=== PATIENT | female | born 1980 | race Caucasian/White ===

== ENCOUNTER 2023-08-15 14:41 | Emergency (ER) | payer BC, SELFPAY ==
[2023-08-15 14:42] VITALS: BP 153/96; PULSE 88; RESP 16; TEMP 36.8; O2SAT 97; BMI 31.9
[2023-08-15 14:46] VITALS: BP 138/104; PULSE 78; RESP 18; O2SAT 95
[2023-08-15 14:53] VITALS: BP 128/76; BP 132/80
[2023-08-15 15:00] VITALS: PULSE 86; RESP 21
--- NOTE | 2023-08-15 15:08 | ECG_ITS ---
[facility] Test Date: 2023-08-15 Pat Name: DAGO PAYNE Department: Room: - Gender: Female Heel Nail Rasper: : 1980 Requested By: JELENA KING Order Number: [id number] Reading MD: JELENA KING Measurements Intervals [place] Rate: 78 P: 46 [place]: 174 QRS: 62 QRSD: 98 T: 52 QT: 358 QTc: 391 Interpretive Statements 1100 Sinus rhythm 9110 normal ECG No previous ECG available for comparison Electronically Signed On 08-18-2023 6:42:46 EST by JELENA KING
[2023-08-15 15:16] LABS: Basophils Absolute Auto 0.1 10^3/uL (0.0-0.1); Basophils Percent Auto 0.5 % (0.2-2.0); Eosinophils Absolute Auto 0.1 10^3/uL (0.0-0.7); Eosinophils Percent Auto 0.6 % (0.9-7.0); Hematocrit 41.6 % (36.0-48.0); Hemoglobin 13.7 g/dL (12.0-16.0); Immature Granulocytes Abs Auto 0.03 10^3/uL (0.00-0.03); Immature Granulocytes Pct Auto 0.3 % (0.0-0.5); Lymphocytes Absolute Auto 1.9 10^3/uL (1.2-3.8); Lymphocytes Percent Auto 20.5 % (20.5-60.0); Mean Corpuscular HGB Conc 32.9 g/dL (29.9-35.2); Mean Corpuscular Hemoglobin 28.5 pg (26.7-34.0); Mean Corpuscular Volume 86.7 fL (81.0-99.0); Mean Platelet Volume 9.5 fL (9.5-13.5); Monocytes Absolute Auto 0.5 10^3/uL (0.3-0.8); Monocytes Percent Auto 5.6 % (1.7-12.0); Neutrophils Absolute Auto 6.8 10^3/uL (1.4-6.5); Neutrophils Percent Auto 72.5 % (43.0-75.0); Platelet Count 384 10^3/uL (150-450); Red Cell Distribution Width 13.4 % (11.0-15.0); White Blood Count 9.3 10^3/uL (4.0-11.0)
--- NOTE | 2023-08-15 15:25 | CT_ITS ---
[address] [address] Patient Name: DAGO PAYNE MRN: [id number] date: 1980 Sex: F Assigned Patient Location: ER Current Patient Location: ED.MAIN Accession/Order Number: [id number] Exam Date: 08/15/2023 15:05 Report Date: 08/15/2023 15:54 At the request of: GARY BROTHERS Procedure: CT angio head EXAM: CT angio head, CT angio neck HISTORY: Right facial/extremity weakness COMPARISON: 08/15/2023 TECHNIQUE: Axial CT images were obtained of the head and neck in the arterial phase. Multiplanar reconstructions were performed. MIP reformatted images were performed. Carotid stenosis is reported according to NASCET criteria. CTA HEAD FINDINGS: Internal carotid arteries: No acute thrombosis or dissection. Vertebrobasilar arteries: No acute thrombosis or dissection. Intracranial arteries: No acute thrombosis, dissection, aneurysm or vascular malformation Venous sinuses: Unremarkable. CTA NECK FINDINGS: Aorta and proximal great vessels: No acute thrombosis or dissection. Common carotid arteries: No acute thrombosis or dissection. Internal carotid arteries: No acute thrombosis or dissection. Vertebral arteries: No acute thrombosis or dissection. Venous structures: Unremarkable. Bones: Unremarkable. Soft tissues: Unremarkable. CT/CT angio head IMPRESSION: 1. No acute vascular abnormality of the head and neck. Electronically authenticated by: HERMILA WHIPPLE Date: 08/15/2023 15:54
--- NOTE | 2023-08-15 15:25 | CT_ITS ---
The [address] [address] Patient Name: DAGO PAYNE MRN: [id number] date: 1980 Sex: F Assigned Patient Location: ER Current Patient Location: ER Accession/Order Number: [id number] Exam Date: 08/15/2023 15:05 Report Date: 08/15/2023 15:47 At the request of: GARY BROTHERS Procedure: CT stroke head/brain wo con EXAMINATION: CT stroke head/brain wo con TECHNIQUE: Axial CT images were obtained through the brain. Sagittal and coronal reformatted images were also obtained. Dose reduction techniques were achieved by using automated exposure control and/or adjustment of mA and/or kV according to patient size and/or use of iterative reconstruction technique. HISTORY: Right facial/extremity weakness COMPARISON: None FINDINGS: Intracranial Bleed: No evidence for acute intracranial bleed. Intracranial Mass: No evidence for mass lesion. No mass effect or midline shift. Extra-axial spaces: The ventricular system is normal caliber. White/Peters Matter: No acute cortical infarct. No significant white matter abnormality. Skull/Scalp: No evidence for skull fracture or lesion. Orbits and sinuses: The orbits appear unremarkable. The visualized paranasal sinuses are clear. CT/CT stroke head/brain wo con IMPRESSION: No acute intracranial pathology. Electronically authenticated by: MARCELA SPANGLER Date: 08/15/2023 15:47
--- NOTE | 2023-08-15 15:25 | CT_ITS ---
[address] [address] Patient Name: DAGO PAYNE MRN: [id number] date: 1980 Sex: F Assigned Patient Location: ED.MAIN Current Patient Location: ED.MAIN Accession/Order Number: [id number] Exam Date: 08/15/2023 15:05 Report Date: 08/15/2023 15:54 At the request of: GARY BROTHERS Procedure: CT angio neck EXAM: CT angio head, CT angio neck HISTORY: Right facial/extremity weakness COMPARISON: 08/15/2023 TECHNIQUE: Axial CT images were obtained of the head and neck in the arterial phase. Multiplanar reconstructions were performed. MIP reformatted images were performed. Carotid stenosis is reported according to NASCET criteria. CTA HEAD FINDINGS: Internal carotid arteries: No acute thrombosis or dissection. Vertebrobasilar arteries: No acute thrombosis or dissection. Intracranial arteries: No acute thrombosis, dissection, aneurysm or vascular malformation Venous sinuses: Unremarkable. CTA NECK FINDINGS: Aorta and proximal great vessels: No acute thrombosis or dissection. Common carotid arteries: No acute thrombosis or dissection. Internal carotid arteries: No acute thrombosis or dissection. Vertebral arteries: No acute thrombosis or dissection. Venous structures: Unremarkable. Bones: Unremarkable. Soft tissues: Unremarkable. CT/CT angio neck IMPRESSION: 1. No acute vascular abnormality of the head and neck. Electronically authenticated by: HERMILA WHIPPLE Date: 08/15/2023 15:54
[2023-08-15 15:27] LABS: INR 1.02; Partial Thromboplastin Time 27.1 sec (22.3-36.2); Prothrombin Time 10.8 sec (9.0-11.6)
[2023-08-15 15:28] LABS: Alanine Aminotransferase 25 U/L (14-59); Albumin Globulin Ratio 0.9; Albumin Level 3.6 g/dL (3.4-5.0); Alkaline Phosphatase 64 U/L (46-116); Aspartate Amino Transferase 27 U/L (15-37); BUN Creatinine Ratio 16.7; Bilirubin Total 0.4 mg/dL (0.2-1.0); Calcium 8.6 mg/dL (8.5-10.1); Carbon Dioxide 27.9 mmol/L (21.0-32.0); Chloride 104 mmol/L (98-107); Estimated GFR (African America >60 (>=60); Estimated GFR (Non-African Ame >60 (>=60); Globulin 3.9 g/dL; Glucose 97 mg/dL (74-106); Potassium 3.9 mmol/L (3.5-5.1); Sodium 141 mmol/L (136-145); Total Protein 7.5 g/dL (6.4-8.2); Troponin I High Sensitivity <4.0 pg/mL (4.0-51.3)
--- NOTE | 2023-08-15 16:30 | ED_ITS ---
HPI - General Adult General Chief complaint: Neuro Symptoms/Deficit Stated complaint: STROKE SYMPTOMS Time Seen by Provider: 08/15/23 14:47 Source: patient Mode of arrival: ambulance History of Present Illness HPI narrative: Patient is a 42-year-old female who is sent to the Emergency Room for evaluation of right facial weakness. Patient was in Dr. Joseph office prior to patient being transferred from the office by an ambulance to the Emergency Room. Patient has had symptoms for the past 3 days. Patient's been having progressing right facial weakness, starting to have difficulty closing her right eye, when she is drinking she is drooling to the right side of her mouth somewhat. Patient has no chest pain or shortness of breath. Patient says that she did have some mild Paresthesia to the right foot In the doctor's office that has resolved. Patient has no back pain, buttock pain, no signs or symptoms of sciatica. No slurred speech or speech changes, patient has minimal right-sided facial droop, no other acute complaints. Patient has no history of Mckeon's palsy. Patient states that last week she was eating some food and has a small canker sores in her mouth. Patient son had flulike symptoms last week. Patient otherwise has not had any type of a viral or herpes infection recently. . All systems are negative except as noted/marked. All systems reviewed and otherwise negative. . Nurses note and vital signs reviewed and patient is not hypoxic. General: The patient appears well and in no apparent distress. Patient is resting comfortably on cart. Patient is not toxic, lethargic, or listless Skin: Warm, dry, no pallor noted. There is no rash noted. No petechiae, purpura. Head: Normocephalic, atraumatic; Minimal loss of right nasolabial fold. Tongue midline. Patient has lost a city anterior two thirds of the right side of her: Compared to left. Patient has sparing of the right facial muscles, there is no fold still right forehead with patient raising upper eyebrows bilateral. Patient has some difficulty closing the right eye. No conjunctivitis, no redness noted to the right eyes sclera or conjunctiva. Eye: Normal conjunctiva, no drainage, EOMI. PERRL. No signs of any type or redness, drainage, or any irritation to the right eye secondary to Mckeon's palsy. Ears, Nose, Mouth, and Throat: oral mucosa is moist. Nares patent. Mouth without vesicles. Cardiovascular: Regular Rate and Rhythm, no murmur, gallop, rub Respiratory: Patient is in no distress, no accessory muscle use, lungs are clear to auscultation, no wheezing, rales or rhonchi Back: non-tender, no CVA tenderness bilaterally to percussion. No CT LS midline pain GI: soft, no tenderness to palpation, no masses appreciated. No rebound, guarding, or rigidity noted. No flank pain bilateral, No distention Musculoskeletal: Patient has full range of motion of all of the extremities, no motor, sensory, or focal neurological deficits Neurological: A&O x3, normal speech. NIH 0, Patient has minimal loss of nasolabial fold on the right. Patient starting this and difficulty closing the right eye, patient has no wrinkling of the right forehead. Patient has loss of taste anterior two thirds of the right tongue. Patient has evidence of Mckeon's palsy. No loss of motor, sensory, or any paresthesia to upper or lower extremities at this time. Psychiatric: Cooperative Related Data Previous Rx's Medication Instructions Recorded methylprednisolone 4 mg tablets in 4 mg PO DAILY 6 days #21 ea 08/15/23 a dose pack (Medrol (Shaun)) valacyclovir 1 gram tablet 1,000 mg PO Q8H 7 days #21 tabs 08/15/23 Allergies Allergy/AdvReac Type Severity Reaction Status Date / Time Sulfa (Sulfonamide Allergy Severe Verified 08/15/23 14:47 Antibiotics) Exam Constitutional Vital Signs, click to edit/add: Last Vital Signs Temp 98.2 F 08/15/23 14:42 Pulse 86 08/15/23 15:00 Resp 21 08/15/23 15:00 BP 128/76 08/15/23 14:53 Pulse Ox 95 08/15/23 14:46 O2 Del Method Room Air 08/15/23 14:54 Course Vital Signs Vital signs: Vital Signs Temperature 98.2 F 08/15/23 14:42 Pulse Rate 88 08/15/23 14:42 Respiratory Rate 16 08/15/23 14:42 Blood Pressure 153/96 H 08/15/23 14:42 Pulse Oximetry 97 08/15/23 14:42 Oxygen Delivery Method Room Air 08/15/23 14:42 Temperature 98.2 F 08/15/23 14:42 Pulse Rate 86 08/15/23 15:00 Respiratory Rate 21 08/15/23 15:00 Blood Pressure 128/76 08/15/23 14:53 Pulse Oximetry 95 08/15/23 14:46 Oxygen Delivery Method Room Air 08/15/23 14:54 Medical Decision Making MDM Narrative Medical decision making narrative: Patient CT of the head showed no acute pathology. A CTA of the head and neck was accidentally ordered, performed, read by radiologist. I have spoken to the head of radiology Department, Calvin Jarrell along with Dr. Ja Zheng. These charges will not take place of the CTA of the head and neck and the radiology read since this was an error and these tests were performed when I initially ordered them and canceled them. Patient labwork shows no acute findings. Patient's case was discussed with her PCP, Dr. Joseph. Patient presented Right Mckeon's palsy. Stroke workup was negative. Patient was sent home with prescription for Medrol Dosepak, Valtrex, and will continue symptomatically treatment. Patient is educated to use Lacri-Lube and refreshing eyedrops during tthe day and tapering her eyes shut at nighttime. Education on Mckeon's palsy was done at bedside and on discharge paperwork Lab Data Labs: Lab Results 08/15/23 Range/Units 15:06 WBC 9.3 (4.0-11.0) 10^3/uL RBC 4.80 (4.20-5.40) 10^6/uL Hgb 13.7 (12.0-16.0) g/dL Hct 41.6 (36.0-48.0) % MCV 86.7 (81.0-99.0) fL MCH 28.5 (26.7-34.0) pg MCHC 32.9 (29.9-35.2) g/dL RDW 13.4 (11.0-15.0) % Plt Count 384 (150-450) 10^3/uL MPV 9.5 (9.5-13.5) fL Neut % (Auto) 72.5 (43.0-75.0) % Lymph % (Auto) 20.5 (20.5-60.0) % [place] % (Auto) 5.6 (1.7-12.0) % Eos % (Auto) 0.6 L (0.9-7.0) % Baso % (Auto) 0.5 (0.2-2.0) % Neut # (Auto) 6.8 H (1.4-6.5) 10^3/uL Lymph # (Auto) 1.9 (1.2-3.8) 10^3/uL [place] # (Auto) 0.5 (0.3-0.8) 10^3/uL Eos # (Auto) 0.1 (0.0-0.7) 10^3/uL Baso # (Auto) 0.1 (0.0-0.1) 10^3/uL Abs Immat Gran (auto) 0.03 (0.00-0.03) 10^3/uL Imm/Tot Granulo (auto) 0.3 (0.0-0.5) % PT 10.8 (9.0-11.6) sec INR 1.02 APTT 27.1 (22.3-36.2) sec Sodium 141 (136-145) mmol/L Potassium 3.9 (3.5-5.1) mmol/L Chloride 104 (98-107) mmol/L Carbon Dioxide 27.9 (21.0-32.0) mmol/L Anion Gap 13.0 BUN 11.0 (7.0-18.0) mg/dL Creatinine 0.66 (0.55-1.02) mg/dL Est GFR ( Amer) >60 (>=60) Est GFR (Non-Af Amer) >60 (>=60) BUN/Creatinine Ratio 16.7 Glucose 97 (74-106) mg/dL Calcium 8.6 (8.5-10.1) mg/dL Total Bilirubin 0.4 (0.2-1.0) mg/dL AST 27 (15-37) U/L ALT 25 (14-59) U/L Alkaline Phosphatase 64 (46-116) U/L Troponin I High Sens <4.0 L (4.0-51.3) pg/mL Total Protein 7.5 (6.4-8.2) g/dL Albumin 3.6 (3.4-5.0) g/dL Globulin 3.9 g/dL Albumin/Globulin Ratio 0.9 ECG Data Attestation: I personally reviewed and interpreted this ECG as follows: (EKG interpretation. Normal sinus rhythm at 78 beats a minute artifact noted. Normal axis deviation. No acute ST elevation, no acute ectopy. QTc of 391.) Discharge Plan Discharge Chief Complaint: Neuro Symptoms/Deficit Clinical Impression: Mckeon's palsy Patient Disposition: Home, Self-Care Condition: Fair Prescriptions / Home Meds: New valacyclovir 1 gram tablet 1,000 mg PO Q8H 7 Days Qty: 21 0RF methylprednisolone [Medrol (Shaun)] 4 mg tablets,dose pack 4 mg PO DAILY 6 Days Qty: 21 0RF Rx Instructions: as directed Instructions: Mckeon Palsy (ED) Additional Instructions: Use [id number] Lacri-Lube eye ointment, 1 inch ribbon to lower eyelid, then use the medical tape and tape your eye shut. Finish the Medrol Dosepak, along with the Valtrex, to help with your symptoms. Follow-up with Dr. Rivera, neurology has been referred to you as well. Stand Alone Forms: Portal Instructions Referrals: Jaun Joseph MD [Primary Care Provider] - 1 week MAI IZAGUIRRE [Physician] - 1 week Discharge Date/Time: 08/15/23 16:36
== END 2023-08-15 16:36 | disposition home or self-care (01) ==
PROVIDERS: Emergency Provider Emergency Medicine; PCP Family Medicine
DX: G51.0 Bell's palsy (principal)
CPT/HCPCS: 36415; 70450; 70496; 70498; 80053; 84484; 85025; 85610; 85730; 93005; 99285; Q9967

== ENCOUNTER 2024-12-23 16:05 | Outpatient (OUT) | payer BC, SELFPAY ==
--- OUTSIDE RECORDS SUMMARY | 2024-06-11 12:15 | XMS_ITS ---
Author Organization [facility] in [place] Address [address] [place] [address] Care Team Providers Care Template Cutter Name Role Phone Jesus Joseph Primary Care Provider [phone] Medications Medication SIG (Take, Route, Frequency, Duration) Notes Start Date End Date Status Amitriptyline HCl 150 MG 1 tablet Orally Once a day for 30 days Active Encounters Encounter Location Date Provider Diagnosis [facility] [address] [place] [address] 06/11/2024 Jesus Joseph Plan Of Treatment Medication Medication Name Sig Start Date Stop Date Notes Amitriptyline HCl 150 MG 1 tablet Orally Once a day for 30 days Progress Notes * Zulema DOTSON LDOB: [birth year] (43 yo F)Acc No.[id number]:06/11/2024 Patient: Yuri Zulema VELASQUEZ :1980 A ge:43 Y S ex:Female Address:[address] [place] [address] [place] [address] * Refills Refill Amitriptyline HCl Tablet, 150 MG, Orally, 30 Tablet, 1 tablet, Once a day, 30 days, Refills=11 * true * Date: Generated for Printi ng/Faxing/eTransmitting on: 0 12/23/2024 04:08 PM EDT
--- OUTSIDE RECORDS SUMMARY | 2024-09-30 09:00 | XMS_ITS ---
Author Organization [facility] in [place] Address [address] [place] [address] Care Team Providers Care Load Manager Name Role Phone Jesus Joseph Primary Care Provider Allergies Allergen (clinical drug ingredient) Drug/Non Drug Allergy documented on EMR Reaction Allergy Type Onset Date Status Substance with sulfonamide structure and antibacterial mechanism of action (substance) Sulfa Antibiotics sores in mouth Drug Allergy Active REASON FOR VISIT left shoulder pain- popping the last couple of weeks- decreased ROM, No known injury Medications Medication SIG (Take, Route, Frequency, Duration) Notes Start Date End Date Status Diclofenac Sodium 75 MG 1 tablet as need ed Orally Twice a day for 30 days 09/30/2024 Active Buprenorphine HCl-Naloxone HCl 8-[address] 1 tablet under the tongue and ALLOW to dissolve twice a day Sublingual for 28 Days Active predniSONE 20 MG 3 tablets Orally Onc e a day for 5 days 09/30/2024 Active Amitriptyline HCl 150 MG 1 tablet Orally Once a day for 30 days Active Social History Tobacco Use: Social History Observation Description Date Details (start date - stop date) Never Smoker NA - NA Tobacco Use/Smoking Question Answer Notes Patient is a nonsmoker Tobacco use other than smoking: Question Answer Notes Are you an other tobacco user? Yes V APE daily Problems Problem Type SNOMED Code ICD Code Onset Dates Problem Status W/U Status Risk Notes Problem Shoulder tendinitis, left (M75.82) Active confirmed Vital Signs Blood pressure systolic 114 mm Hg 10/01/19 25 Blood pressure diastolic 86 mm Hg 025 Height 62 in 09/30/2024 Weight 176.4 lbs 09/30/2024 BMI 32.26 kg/m2 09/30/2024 Encounters Encounter Location Date Provider Diagnosis [facility] [address] [place] [address] 09/30/2024 Jesus Joseph Shoulder tendinitis, left M75.82 Assessments Encounter Date Diagnosis (ICD Code) Assessment Notes Treatment Notes Treatment Clinical Notes Section Notes 09/30/2024 Shoulder tendinitis, left (ICD-10 - M75.82) Plan Of Treatment Medication Medication Name Sig Start Date Stop Date Notes Diclofenac Sodium 75 MG 1 tablet as need ed Orally Twice a day for 30 days 09/30/2024 predniSONE 20 MG 3 tablets Orally Onc e a day for 5 days 09/30/2024 Medications Administered Medication Instructions Date of Administration Dosage Notes Dexamethasone, 4mg/mL 09/30/2024 8 mg Ketorolac Tromethamine 09/30/2024 60 mg Progress Notes * Zulema DOTSON LDOB: [birth year] (43 yo F)Acc No.[id number]:09/30/2024 Progress Note Patient: Zulema SALDIVAR Provider: Kurt Joseph ([facility])MD :1980 A ge:43 Y S ex:Female Date:09/30/2024 Address:[facility] [address], [id number] Check In:01:02 PM ESTCheck O ut:01:55 PM EST Subjective: * Chief Complaints: * l eft shoulder pain- popping the last couple of weeks- decreased ROMNo known injury * HPI: G eneral: Left shoulder - gettiong worase in last 3 wqeeks - lifitn some more since spring time -. D epression Screening: PHQ-2 (2015 Edition) L ittle interest or pleasure in doing things??Not at all F eeling down, depressed, or hopeless? N ot at all T otal Score 0 * ROS: E ENT: hearing changes d enies. v isual changes d enies.?non-healing mouth sores d enies. s wollen glands or neck lumps d enies. h oarseness d enies. s ore throat d enies. d ifficulty swallowing d enies. n ose bleeds d enies. n geronimo congestion d enies. e ar ache d enies. e ar discharge?denies. r inging in ears d enies. l ight sensitivity d enies. e ye pain d enies. b lurring d enies. e ye irritation d enies. d ouble vision d enies.?vision loss d enies. G eneral/Constitutional: Sweats: D enies. F atigue d enies. S leep problems d enies. A norexia d enies. M alaise d enies. W eight loss d enies.?Fatigue or Weakness d enies. F ever or Chills d enies. C ardiovascular: Shortness of Breath w/lying flat d enies. L ightheadedness/dizziness d enies. C hest tightness/ heavy pressure d enies. S welling of legs, ankles, or feet d enies. W aking up with shortness of breath d enies. C hest pain denies. P alpitations d enies. W eight gain d enies. R espiratory: Chronic or frequent cough d enies. C oughing up blood?denies. D ifficulty breathing d enies. P roductive cough d enies. S noring?denies. S hortness of breath that awakens from sleep (PND) d enies. C hest pain d enies. S putum production d enies. W heezing d enies. M usculoskeletal: Joint pain d enies. J oint Fluid d enies. B ack pain d enies. K nee pain d enies. N som pain d enies. J oint Stiffness d enies. M uscle cramps d enies. W eakness of muscles d enies. A rthritis d enies. M uscle aches d enies. P ain in shoulder(s) d enies. S wollen joints d enies. * Active Problem List G47.00 Insomnia Modified On:08/15/2023W/U Status:confirmed F11.10 Narcotic abuse Modified On:08/15/2023/U Status:confirmed R29.810 Facial droop Modified On:08/15/2023/U Status:confirmed M62.81 Right leg weakness Modified On:08/25/2023/U Status:confirmed R53.1 Weakness Modified On:09/02/2023/U Status:confirmed M75.82 Shoulder tendinitis, left Modified On:09/30/2024/U Status:confirmed * Medical History: * Surgical History: C ESAREAN DELIVERY x2 D&C x2 * Hospitalization/Major Diagno stic Procedure: D enies Past Hospitalization * Family History: F ather: alive. M other: alive, dementia, diagnosed with Unspecified essential hypertension. S ister(s): alive. S on(s): alive. D patito(s): alive. 1 sister(s) - healthy. 2 son(s) , 1 daughter(s) - healthy. . * Social History: T obacco Use: T obacco use other than smoking A re you an other tobacco user? Y es VAPE daily Tobacco Use/Smoking P atient is a n onsmoker * Medications: T akingAmitriptyline HCl 150 MG Tablet 1 tablet Orally Once a day Buprenorphine HCl-Naloxone HCl 8-[address] 1 tablet under the tongue and ALLOW to dissolve twice a day Sublingual Taking Amitriptyline HCl 150 MG Tablet 1 tablet Orally Once a day Taking Buprenorphine HCl-Naloxone HCl 8-[address] 1 tablet under the tongue and ALLOW to dissolve twice a day Sublingual DiscontinuedmethylPREDNISolone 4 MG Tablet Therapy Pack TAKE 6 TABLETS ON DAY 1 DIRECTED ON PACKAGE AND DECREASE BY 1 TAB EACH DAY FOR A TOTAL OF 6 DAYS Oral valACYclovir HCl 1 GM Tablet TAKE 1 TABLET EVERY 8 HOURS FOR 7 DAYS Oral Medication List reviewed and reconciled with the patientDiscontinued methylPREDNISolone 4 MG Tablet Therapy Pack TAKE 6 TABLETS ON DAY 1 DIRECTED ON PACKAGE AND DECREASE BY 1 TAB EACH DAY FOR A TOTAL OF 6 DAYS Oral Discontinued valACYclovir HCl 1 GM Tablet TAKE 1 TABLET EVERY 8 HOURS FOR 7 DAYS Oral Medication List reviewed and reconciled with the patient * Allergies: S ulfa Antibiotics: sores in mouth - Allergyno[Allergies Verified] Objective: * Vitals: W t:176.4lbs, Ht: 62 in, BP:114/86mm Hg, BMI:32.26Index, Ht-cm: 157.48 cm, Wt-k.01 kg. * Examination: P hysical Exam: GENERAL: w ell developed, well nourished, in no acute distress. HEAD: n ormocephalic/atraumatic. EYES: p upils equal, round and reactive to light, conjunctivae and sclerae normal. EARS: n o deformity or lesion of external ear, canals and TM appear normal bilaterally, TM's intact, not inflamed with normal light reflex, hearing grossly normal to conversational speech. NOSE: n o deformity, discharge, inflammation, or lesions.? MOUTH: m ucous membranes moist, normal oropharynx and posterior pharynx without lesions or exudates, tongue normal, dentition normal. NECK: n som supple, no masses or palpable cervical nodes, trachea midline, thyroid without nodules, masses, tenderness, or enlargement. CHEST: n o chest wall deformity, no chest wall tenderness.? LUNGS: n ormal respiratory effort and clear to auscultation, no wheezes, rales, or rhonchi, good air exchange. CARDIO: r egular rate and rhythm, normal S1 and S2, nor murmur, rub, or gallop. PULSES: n ormal capillary refill. ABDOMEN: s oft, non-distended, non-tender, no masses. MUSCULOSKELETAL: n o deformity or scoliosis noted, normal range of motion, joints normal, no erythema, edema, effusion, or ecchymosis. EXTREMITY: l eft shoulder limited ROM due to pain - . ? NEUROLOGIC: g rossly normal. SKIN: n o rashes, ulcerations, or suspicious lesions. LYMPH NODES: n o cervical adenopathy, nodes normal. MENTAL STATUS: a lert and oriented x3, normal mood and affect. Assessment: * Assessment: 1. S houlder tendinitis, left - M75.82 (Primary) Plan: * Treatment: * Therapeutic Injections: Ketorolac Tromethamine : 60 mg (Route: Intramuscular) given by Ernestina Garay SA on left deltoid (Shoulder tendinitis, left) Dexamethasone, 4mg/mL : 8 mg (Route: Intramuscular) given by Ernestina Garay SA on right deltoid (Shoulder tendinitis, left) * Procedure Codes: 9 [id number] THERAP.INJ. OF MED. INTRAMUSCULAR OR [id number] TORADOL, PER 15 MG, Units: 4.00 J1100 Dexamethasone, 4mg/mL, Units: 2.00 * Preventive Medicine: Screenings/Counseling: B MD ACTION PLAN Above Normal BMI Follow-up D ietary management education, guidance, and counseling * * Sign off status: Completed Visit Status: C HK (Check Out) true * Provider: Kurt Joseph ([facility])MD Date: 0 09/30/2024 Generated for Printi ng/Faxing/eTransmitting on: 0 12/23/2024 04:08 PM EDT History and Physical Notes * HPI (History of Present Illness) Category Sub-Category Detail Notes Category Not es General Left shoulder - gettiong worase in last 3 wqeeks - lifitn some more since spring time - Depression Screening PHQ-2 (2015 Edition) Little interest or pleasure in doing things?: Not at all Feeling down, depressed, or hopeless?: N ot at all Total Score: 0 Examination Category Sub-Category Detail Notes Category Not es Physical Exam GENERAL: well developed, well nourished, in no acute distress HEAD: normocephalic/atraum atic EYES: pupils equal, round and reactive to light, conjunctivae and sclerae normal EARS: no deformity or lesi on of external ear, canals and TM appear normal bilaterally, TM's intact, not inflamed with normal light reflex, hearing grossly normal to conversational speech NOSE: no deformity, discha rge, inflammation, or lesions MOUTH: mucous membranes cristobal st, normal oropharynx and posterior pharynx without lesions or exudates, tongue normal, dentition normal NECK: neck supple, no mass es or palpable cervical nodes, trachea midline, thyroid without nodules, masses, tenderness, or enlargement CHEST: no chest wall deform ity, no chest wall tenderness LUNGS: normal respiratory e ffort and clear to auscultation, no wheezes, rales, or rhonchi, good air exchange CARDIO: regular rate and rhy thm, normal S1 and S2, nor murmur, rub, or gallop PULSES: normal capillary ref ill ABDOMEN: soft, non-distended, non-tender, no masses RECTAL: MUSCULOSKELETAL: no deformity or scol iosis noted, normal range of motion, joints normal, no erythema, edema, effusion, or ecchymosis EXTREMITY: left shoulder limite d ROM due to pain - NEUROLOGIC: grossly normal SKIN: no rashes, ulceratio ns, or suspicious lesions LYMPH NODES: no cervical adenopat hy, nodes normal MENTAL STATUS: alert and oriented x 3, normal mood and affect
--- OUTSIDE RECORDS SUMMARY | 2024-12-23 11:15 | XMS_ITS ---
Author Organization [facility] in [place] Address [address] [place] [address] Care Team Providers Care Central Sterile Technician Name Role Phone Jesus Joseph Primary Care Provider [phone] Allergies Allergen (clinical drug ingredient) Drug/Non Drug Allergy documented on EMR Reaction Allergy Type Onset Date Status Substance with sulfonamide structure and antibacterial mechanism of action (substance) Sulfa Antibiotics sores in mouth Drug Allergy Active REASON FOR VISIT 3 mo f/u, Joint pain- knees, elbows, shoulders - worse when waking up in the AM- ongoing since lastweek and just getting worse Medications Medication SIG (Take, Route, Frequency, Duration) Notes Start Date End Date Status Diclofenac Sodium 75 MG 1 tablet as need ed Orally Twice a day for 30 days 09/30/2024 Active Buprenorphine HCl-Naloxone HCl 8-[address] 1 tablet under the tongue and ALLOW to dissolve twice a day Sublingual for 28 Days Active predniSONE 10 MG 5 tabs per day for 3 days, 4 tabs per day for 3 ays, 3 tabs perday for 3 days, 2 tabs per day for 3 days, 1 tab a day for 3 days, 1/2 tab a day for 4 days Orally Once a day for 19 days 12/23/2024 Active Amitriptyline HCl 150 MG 1 tablet [...] Problem Status W/U Status Risk Notes Problem Arthritis (4870257) Arthritis (M19.90) Active confirmed Vital Signs Blood pressure systolic 134 mm Hg 12/24/19 25 Blood pressure diastolic 80 mm Hg 025 Height 62 in 12/23/2024 Weight 178.6 lbs 12/23/2024 BMI 32.66 kg/m2 12/23/2024 Encounters Encounter Location Date Provider Diagnosis [facility] [address] [place] [address] 12/23/2024 Jesus Joseph Arthritis M19.90 Assessments Encounter Date Diagnosis (ICD Code) Assessment Notes Treatment Notes Treatment Clinical Notes Section Notes 12/23/2024 Arthritis (ICD-10 - M19.90) 12/23/2024 Other Recommended to rest and use a heating pad on the area. Take NSAIDs for pain as needed Plan Of Treatment Medication Medication Name Sig Start Date Stop Date Notes predniSONE 10 MG 5 tabs per day for 3 days, 4 tabs per day for 3 ays, 3 tabs perday for 3 days, 2 tabs per day for 3 days, 1 tab a day for 3 days, 1/2 tab a day for 4 days Orally Once a day for 19 days 12/23/2024 Amitriptyline HCl 150 MG 1 tablet Orally Once a day for 30 days Treatment Notes Assessment Notes Other Recommended to rest and use a heating pad on the area. Take NSAIDs for pain as needed Pending Test Test Name Order Date RHEUMATOID PANEL 12/23/2024 CBC AUTO DIFF 12/23/2024 CRP 12/23/2024 SED RATE WESTERGREN 12/23/2024 Medications Administered Medication Instructions Date of Administration Dosage Notes Dexamethasone, 4mg/mL 12/23/2024 8 mg Progress Notes * KERRYJdZulema LDOB: [birth year] (44 yo F)Acc No.[id number]:12/23/2024 UNLOCKED PROGRESS NOTE Progress Note Patient: Zulema SALDIVAR Provider: Kurt Joseph ([facility])MD :1980 A ge:44 Y S ex:Female Date:12/23/2024 Address:[address], [id number] Check In:03:18 PM ESTCheck O ut:03:53 PM EST Subjective: * Chief Complaints: * 1 . 3 mo f/u. 2. Joint pain- knees, elbows, shoulders - worse when waking up in the AM- ongoing since last week and just getting worse. * HPI: G eneral: diffuse arthralgia. B ack Pain: The patient complains of -. The symptoms have been present for 1-2 days. The patient believes symptoms are injury related No. The symptoms are mild. Symptomatic treatment has included heating pad, stretching. Associated symptoms include None. * ROS: G eneral/Constitutional: Lightheadedness d enies. C hange in appetite d enies. W eight Change d enies. C ardiovascular: Irregular heartbeat d enies. S welling in hands/feet?denies. R espiratory: Shortness of breath d enies. S hortness of breath with exertion d enies. W heezing d enies. M usculoskeletal: Comments S [facility] for details. N eurologic: Dizziness d enies. F ainting d enies. H eadache?denies. * Medical History: I nsomnia, Narcotic abuse. * Surgical History: C ESAREAN DELIVERY x2 , D&C x2 . * Hospitalization/Major Diagno stic Procedure: D enies Past Hospitalization. * Family History: F ather: alive. M other: alive, dementia, diagnosed with Unspecified essential hypertension. S ister(s): alive. S on(s): alive. D augashwiner(s): alive. 1 sister(s) - healthy. 2 son(s) , 1 daughter(s) - healthy. . * Social History: T obacco Use: T obacco use other than smoking A re you an other tobacco user? Y es VAPE daily Tobacco Use/Smoking P atient is a n onsmoker * Medications: T aking Amitriptyline HCl 150 MG Tablet 1 tablet Orally Once a day , Taking Buprenorphine HCl-Naloxone HCl 8-[address] 1 tablet under the tongue and ALLOW to dissolve twice a day Sublingual , Taking Diclofenac Sodium 75 MG Tablet Delayed Release 1 tablet as needed Orally Twice a day , Discontinued predniSONE 20 MG Tablet 3 tablets Orally Once a day , Medication List reviewed and reconciled with the patient * Allergies: S ulfa Antibiotics: sores in mouth - Allergy. Objective: * Vitals: W t:178.6lbs, Ht: 62 in, BP:134/80mm Hg, BMI:32.66Index, Ht-cm: 157.48 cm, Wt-k.01 kg. * Examination: G eneral Examination: GENERAL APPEARANCE: i n no acute distress, well developed, well nourished. LUNGS: clear to auscultation bilaterally. CARDIO: S1, S2 normal, no murmurs, rubs, gallops. MUSCULOSKELETAL: s low moving due to arthritis. EXTREMITIES: no clubbing, cyanosis, or edema. NEUROLOGIC: alert, oriented to time, place, & person.? Assessment: * Assessment: 1. A rthritis - M19.90 (Primary) Plan: * Treatment: 2. O thers Notes: Recommended to rest and use a heating pad on the area. Take NSAIDs for pain as needed ? * Therapeutic Injections: Dexamethasone, 4mg/mL : 8 mg (Route: Intramuscular) given by SCAR Gaona on right deltoid (Arthritis) * Procedure Codes: J 1100 Dexamethasone, 4mg/mL * Preventive Medicine: Screenings/Counseling: B TN ACTION PLAN Above Normal BMI Follow-up D ietary management education, guidance, and counseling * * Electronic signature of Jesus Joseph MD, [phone] on 12/23/2024 at 04:08 PM EDT Sign off status: Pending Visit Status: C HK (Check Out) * Provider: Kurt Joseph ([facility])MD Date: 12/23/2024 Generated for Julio ornelas/Ana/Obismitting on: 12/23/2024 04:08 PM EDT History and Physical Notes * HPI (History of Present Illness) Category Sub-Category Detail Notes Category Not es General diffuse arthral mack Examination Category Sub-Category Detail Notes Category Not es General Examination GENERAL APPEARANCE: in no ac zoë distress, well developed, well nourished CARDIO: S1, S2 normal, no mu rmurs, rubs, gallops LUNGS: clear to auscultatio n bilaterally NEUROLOGIC: alert, oriented to t griselda, place, & person EXTREMITIES: no clubbing, cyanosi s, or edema MUSCULOSKELETAL: slow moving due to a rthritis
--- OUTSIDE RECORDS SUMMARY | 2024-12-23 16:08 | XMS_ITS | Patient Health Record ---
Author Organization [facility] Address [address] [place] [address] Care Team Providers Care Landscape Manager Name Role Phone NAPOLEONMarco Antonio Talaveramary Primary Care Provider Reason For Referral No Information Medications Medication SIG (Take, Route, Fr equency, Duration) Notes Start Date End Date Status Amitriptyline HCl 25 MG 1 tablet at bedt griselda Orally Once a day for 30 day(s) 12/19/2014 Active Suboxone 8-2 MG 1 application under the tongue and allow to dissolve Sublingual Once a day Active Problems Problem Type SNOMED Code ICD Code Onset Dates Problem Status W/U Status Risk Notes Problem care (052580966) Supervision of other normal (V22.1) Active confirmed Plan Of Treatment No Information Insurance Providers Payer Name Payer Address Payer Phone Subscriber Number Group Number Insured Name Patient Relationship to Insured Coverage Start Date Coverage End Date [employer] [address] [place] [address] [id number] MICHAEL PAYNEELLE Self - [facility] [employer] [address] [place] [address] [id number] [id number] PAYNE Self - patient is the insured Medical (General) History Surgical History Surgery Date(Month/Year) 08/2007 Hospitalization History Reason Date(Month/Year) blood transfusion from D&C age 20
--- OUTSIDE RECORDS SUMMARY | 2024-12-23 16:25 | XMS_ITS | CCD ---
Author Organization [facility] Care Team Providers Care Rock Splitter Name Role Phone JELENA KING Unavailable Unavailable DARSHAN, VESELIN Unavailable Unavailable FERNANDO ., DR BOWLES Attending Unavailable HOY ., DR BOWLES Admitting Unavailable ARISTEOY ., DR BOWLES Admitting Unavailable ARISTEOY ., DR BOWLES Primary Care Unavailable ARISTEOY ., DR BOWLES Consulting Unavailable HOY ., DR BOWLES Attending Unavailable ZIEBER, DR MAI Montero Consulting Unavailable Problems Active Problems Problem Classification Problem Date Documented Da te Episodic/Chronic Other connective tissue disease (4 sources) Pain in right hand; Translations: [PAIN IN RIGHT HAND] Onset: 09-16-2022 Episodic Other female genital disorders (1 source) Other specified abnormal uterine and vaginal bleeding; Translations: [Other specified abnormal uterine and vaginal bleeding] Onset: 05-17-2017 Chronic Past or Other Problems Problem Classification Problem Date Documented Da te Episodic/Chronic Abdominal pain (1 source) Unspecified abdominal pain; Translations: [Unspecified abdominal pain] Onset: 05-17-2017 Episodic Results Test Name Value Interpretation Reference Range Facil ity CBC with Diffon 05-17-2017 Abs. Basophil 0.00 k/uL Normal 0.0-0.2 [facility] Comment on above: Result Comment: Perf ormed at [facility] [address] [place] [address] ([phone] Performed By: #### C DP, CP ####[address] [place] [address] Abs.Neutrophil (Seg) 5.00 k/uL Normal 2.5-7.0 [facility] Comment on above: Performed By: #### C DP, CP ####[address] [place] [address] Auto Diff Performed YES Normal [facility] Comment on above: Performed By: #### C DP, CP ####[facility] [place] [address] Basophils/100 WBC Auto (Bld) 0 % Normal [facility] Comment on above: Performed By: #### C DP, CP ####[facility] [place] [address] Eosinophils 0.10 10*3/uL Normal 0.0-0.4 [facility] Comment on above: Performed By: #### C DP, CP ####[address] [place] [address] Eosinophils/100 leukocytes 1 % Normal [facility] Comment on above: Performed By: #### C DP, CP ####[address] [place] [address] Erythrocyte distribution width Auto Ratio (RBC) 14.2 % Normal 12.1-15.2 [facility] Comment on above: Performed By: #### C DP, CP ####[address] [place] [address] Erythrocytes (RBC) 4.59 10*6/uL Normal 4.0-5.2 [facility] Comment on above: Performed By: #### C DP, CP ####[facility] [place] [address] Hematocrit (HCT) 38.6 % Normal 36-46 [facility] Comment on above: Performed By: #### C DP, CP ####[facility] [place] [address] Hemoglobin mass conc (Bld) 13.0 g/dL Normal 12.0-16.0 [facility] Comment on above: Performed By: #### C DP, CP ####[facility] [place] [address] Lymphocytes 2.00 10*3/uL Normal 1.0-4.8 [facility] Comment on above: Performed By: #### C DP, CP ####[facility] [place] [address] Lymphocytes/100 leukocytes 27 % Normal [facility] Comment on above: Performed By: #### C DP, CP ####[facility] [place] [address] MCH 28.4 pg Normal 26-34 [facility] Comment on above: Performed By: #### C DP, CP ####[facility] [place] [address] MCHC mass conc (RBC) 33.7 g/dL Normal 31-37 [facility] Comment on above: Performed By: #### C DP, CP ####[facility] [place] [address] MCV 84.1 fL Normal 80-100 [facility] Comment on above: Performed By: #### C DP, CP ####[facility] [place] [address] Monocytes 0.50 10*3/uL Normal 0.0-1.0 [facility] Comment on above: Performed By: #### C DP, CP ####[facility] [place] [address] Monocytes/100 leukocytes 6 % Normal [facility] Comment on above: Performed By: #### C DP, CP ####[facility] [place] [address] Neutrophil (Seg) 66 % Normal [facility] Comment on above: Performed By: #### C DP, CP ####[facility] [place] [address] Platelets 314 10*3/uL Normal 140-450 [facility] Comment on above: Performed By: #### C DP, CP ####[facility] [place] [address] WBC (Leukocytes) 7.6 10*3/uL Normal 3.5-11.0 [facility] Comment on above: Performed By: #### C DP, CP ####[facility] [place] [address] Erythrocyte morphology NOT REPORTED Normal [facility] Comment on above: Performed By: #### C DP, CP ####[facility] [place] [address] Granulocytes/100 WBC (Bld) NOT REPORTED Normal 0.00-0.30 [facility] Comment on above: Performed By: #### C DP, CP ####[facility] [place] [address] Immature granulocytes #/vol (Bld) NOT REPORTED Normal 0 [facility] Comment on above: Performed By: #### C DP, CP ####[facility] [place] [address] Platelet mean volume (PMV) NOT REPORTED Normal 6.0-12.0 [facility] Comment on above: Performed By: #### C DP, CP ####[facility] [place] [address] Platelets NOT REPORTED Normal [facility] Comment on above: Performed By: #### C DP, CP ####[facility] [place] [address] WBC Morphology NOT REPORTED Normal [facility] Comment on above: Performed By: #### C DP, CP ####[facility] [phone] Comp Metabolic Profon 2016 (cont.) Normal [facility] Comment on above: Result Comment: Aver age GFR for 30-39 years old: 107 mL/min/1.73sq mChronic Kidney Disease: <60 mL/min/1.73sq mKidney failure: <15 mL/min/1.73sq meGFR calculated using average adult body mass. Additional eGFR calculator available at:http://[email or web address]/multiple_crcl_2012.htmPerformed at [facility] [address] [facility] [place] [address] Performed By: #### C DP, CP ####[address] [facility].[place] [phone] Alanine aminotransferase (ALT) 18 U/L Normal 5-33 [facility] Comment on above: Performed By: #### C DP, CP ####[address] [facility] [place] [address] Albumin 4.2 g/dL Normal 3.5-5.2 [facility] Comment on above: Performed By: #### C DP, CP ####[address] [place] [address] Alkaline Phos 60 U/L Normal 35-104 [facility] Comment on above: Performed By: #### C DP, CP ####[address] [facility] [place] [address] Anion gap 14 mmol/L Normal 9-17 [facility] Comment on above: Performed By: #### C DP, CP ####[address] [facility] [place] [address] Aspartate aminotransferase (AST) 16 U/L Normal <32 [facility] Comment on above: Performed By: #### C DP, CP ####[address] [facility] [place] [address] Bilirubin Ql (U) 0.39 mg/dL Normal 0.3-1.2 [facility] Comment on above: Performed By: #### C DP, CP ####[facility] [facility] [place] [address] BUN/CRE Ratio 30 High 9-20 [facility] Comment on above: Performed By: #### C DP, CP ####[facility] [facility] [place] [address] Calcium 9.2 mg/dL Normal 8.6-10.4 [facility] Comment on above: Performed By: #### C DP, CP ####[facility] [facility] [place] [address] Chloride 102 mmol/L Normal 98-107 [facility] Comment on above: Performed By: #### C DP, CP ####[facility] [facility] [place] [address] CO2 22 mmol/L Normal 20-31 [facility] Comment on above: Performed By: #### C DP, CP ####[facility] [facility] [place] [address] Creatinine 0.54 mg/dL Normal 0.50-0.90 [facility] Comment on above: Performed By: #### C DP, CP ####[facility] [facility] [place] [address] eGFR (non-black) mL/min/{1.73_m2} Normal >60 [facility] Comment on above: Performed By: #### C DP, CP ####[facility] [facility] [place] [address] Glucose mass conc 98 mg/dL Normal 70-99 [facility] Comment on above: Performed By: #### C DP, CP ####[facility] [place] [address] Potassium molar conc 3.8 mmol/L Normal 3.7-5.3 [facility] Comment on above: Performed By: #### C DP, CP ####[facility] [place] [place] [address] Protein 7.1 g/dL Normal 6.4-8.3 [facility] Comment on above: Performed By: #### C DP, CP ####[facility] [place] [place] [address] Sodium 138 mmol/L Normal 135-144 [facility] Comment on above: Performed By: #### C DP, CP ####[address] [place] [address] Urea nitrogen 16 mg/dL Normal 6-20 [facility] Comment on above: Performed By: #### C DP, CP ####[facility] [facility] [place] [address] Albumin/Globulin Ratio NOT REPORTED Normal 1.0-2.5 [facility] Comment on above: Performed By: #### C DP, CP ####[address] [facility] [place] [address] Staging: NOT REPORTED Normal [facility] Comment on above: Performed By: #### C DP, CP ####[address] [facility] [place] [address] ED Provider Noteon 7 HIM IP Note OR Plant Inspector Normal [facility] HCG, ,Urineon 05-17 HCG.beta subunit ( test) Ql (U) Negative Normal NEG [facility] Comment on above: Result Comment: Perf ormed at [facility] [address] [place], [place] [phone] ([phone]) Performed By: #### U HCG, UA, UMICAO ####[facility] [place] [address] Urinalysis, Routineon 2016 Acetaminophen mass conc Negative Normal NEG [facility] Comment on above: Performed By: #### U HCG, UA, UMICAO ####[facility] [place] [address] Bilirubin (direct) Negative Normal NEG [facility] Comment on above: Performed By: #### U HCG, UA, UMICAO ####[address] [facility] [place] [address] Comment Normal [facility] Comment on above: Result Comment: Perf ormed at [facility] [address] [facility] [place] [address] Performed By: #### U HCG, UA, UMICAO ####[address] [place] [address] Hemoglobin mass conc (Bld) TRACE Abnormal NEG [facility] Comment on above: Performed By: #### U HCG, UA, UMICAO ####[address] [facility] [place] [address] Nitrite,Ur Negative Normal NEG [facility] Comment on above: Performed By: #### U HCG, UA, UMICAO ####[address] [facility] [place] [address] Turbidity CLEAR Normal CLEAR [facility] Comment on above: Performed By: #### U HCG, UA, UMICAO ####[address] [facility] [place] [address] Urine, color YELLOW Normal YEL [facility] Comment on above: Performed By: #### U HCG, UA, UMICAO ####[address] [place] [address] Urine, glucose presence Negative Normal NEG [facility] Comment on above: Performed By: #### U HCG, UA, UMICAO ####[address] [facility] [place] [address] Urine, leukocyte esterase presence Negative Normal NEG [facility] Comment on above: Performed By: #### U HCG, UA, UMICAO ####[address] [facility] [place] [address] Urine, pH 5.0 [pH] Normal 5.0-8.0 [facility] Comment on above: Performed By: #### U HCG, UA, UMICAO ####[address] [facility] [place] [address] Urine, protein presence TRACE Abnormal NEG [facility] Comment on above: Performed By: #### U HCG, UA, UMICAO ####[address] [place] [address] Urine, specific gravity 1.025 Normal 1.005-1.030 [facility] Comment on above: Performed By: #### U HCG, UA, UMICAO ####[address] [place] [address] Urobilinogen,Ur Normal Normal NORM [facility] Comment on above: Performed By: #### U HCG, UA, UMICAO ####[address] [facility] [place] [address] Urinalysis,Microon 7 ----- Normal [facility] Comment on above: Performed By: #### U HCG, UA, UMICAO ####[address] [facility] [place] [address] Urine WBC's 0 TO 2 Normal 0 [facility] Comment on above: Performed By: #### U HCG, UA, UMICAO ####[address] [place] [address] Urine, bacteria in sediment RARE Abnormal NONE [facility] Comment on above: Result Comment: Perf ormed at [facility] [address] [place] [address] Performed By: #### U HCG, UA, UMICAO ####[facility] [place] [address] Urine, epithelial cells in sediment 2 TO 5 Normal [facility] Comment on above: Performed By: #### U HCG, UA, UMICAO ####[facility] [place] [address] Urine, erythrocytes 0 TO 2 Normal 0-2 [facility] Comment on above: Performed By: #### U HCG, UA, UMICAO ####[address] [place] [address] Epithelial, Renal NOT REPORTED Normal 0 [facility] Comment on above: Performed By: #### U HCG, UA, UMICAO ####[address] [facility] [place] [address] Mucus Strands NOT REPORTED Normal NONE [facility] Comment on above: Performed By: #### U HCG, UA, UMICAO ####[address] [place] [address] Other Observations NOT REPORTED [facility] on above: Performed By: #### U HCG, UA, UMICAO ####[facility] [facility] [place] [address] Trichomonas NOT REPORTED Normal NONE [facility] Comment on above: Performed By: #### U HCG, UA, UMICAO ####[facility] [place] [address] Urine, amorphous sediment presence in sediment NOT REPORTED Normal NONE [facility] Comment on above: Performed By: #### U HCG, UA, UMICAO ####[facility], [place] [phone] Urine, casts in sediment NOT REPORTED Normal [facility] Comment on above: Performed By: #### U HCG, UA, UMICAO ####[facility] [place] [address] Urine, crystals in sediment NOT REPORTED Normal NONE [facility] Comment on above: Performed By: #### U HCG, UA, UMICAO ####[facility], [place] [phone]) Urine, yeast presence in sediment NOT REPORTED Normal NONE [facility] Comment on above: Performed By: #### U HCG, UA, UMICAO ####[facility], [place] [id number] Encounters Encounter Date Encounter Type Care Provider Facility Start: 09-16-2022 End: 09-17-[address] JELENA KING . Facility: Start: 12-26-[address] JELENA KING . Facili ty:[facility] Start: 05-17-2017 End: 05-17-2017 Emergency department patient visit JELENA [facility] Procedures Date Procedure Procedure Detail Performing Clinician Start: 05-17-2017 CBC WITH AUTO DIFFERENTIAL JELENA KING Start: 05-17-2017 COMPREHENSIVE METABOLIC PANEL JLEENA KING Start: 05-17-2017 Microscopic urinalysis JELENA KING Start: 05-17-2017 , URINE LAMARLA S ARISTEOMichelle Start: 05-17-2017 Urinalysis JELENA Martinez Payers Date Payer Category Payer Unknown [id number] 1980 Unknown [id number] 1980 Unknown [id number] 1958 Self-pay 1958 Unknown [id number] Clinical Note 09-17-2022 Note Date & Type Note Facility 09-17-2022 Note PROCEDURE: XR HAND R T MIN 3V HISTORY: Pain in right hand , bruising COMPARISON: None. FINDINGS: BONES:No fracture, acute abnormality, or significant arthropathy. SOFT TISSUES:No visible soft tissue swelling. EFFUSION:None visible. OTHER: Negative. IMPRESSION: 1. No acute bone abnormality or suspicious findings. Electronically authenticated by: MAI BRADLEY Date: 2022-09-17 07:[address] [facility] Summary Purpose Family History No Family History Records FoundNo Family History Records Found Advance Directives No Advanced Directives Records FoundNo Advanced Directives Records Found Additional Source Comments INFORMATION SOURCE (unrecogn ized section and content) DATE CREATED AUTHOR 01/02/2018 Michelle jon DATE CREATED AUTHOR AUTHOR'S ORGANIZ ATION 09/18/2022 [facility] FOR RECORDS PERTAINING TO PATIENTS WHO ARE OR HAVE BEEN ENROLLED IN A CHEMICAL DEPENDENCY/SUBSTANCEABUSE PROGRAM, SOME INFORMATION MAY BE OMITTED. This clinical summary was aggregated from multiple sources. Caution should be exercised in using it in the provision of clinical care. This summary normalizes information from multiple sources, and as a consequence, information in this document may materially change the coding, format and clinical context of patient data. In addition, data may be omitted in some cases. CLINICAL DECISIONS SHOULD BE BASED ON THE PRIMARY CLINICAL RECORDS. [facility] [employer] [facility]. provides no warranty or guarantee of the accuracy or completeness of information in this document.
[2024-12-23 16:59] LABS: C Reactive Protein 0.68 mg/dL (<=0.50); Uric Acid 2.9 mg/dL (2.6-6.0)
[2024-12-23 17:52] LABS: Basophils Absolute Auto 0.1 10^3/uL (0.0-0.1); Basophils Percent Auto 0.8 % (0.2-2.0); Eosinophils Absolute Auto 0.1 10^3/uL (0.0-0.7); Eosinophils Percent Auto 2.2 % (0.9-7.0); Hematocrit 39.2 % (36.0-48.0); Hemoglobin 13.2 g/dL (12.0-16.0); Immature Granulocytes Abs Auto 0.01 10^3/uL (0.00-0.03); Immature Granulocytes Pct Auto 0.2 % (0.0-0.5); Lymphocytes Absolute Auto 2.2 10^3/uL (1.2-3.8); Lymphocytes Percent Auto 33.7 % (20.5-60.0); Mean Corpuscular HGB Conc 33.7 g/dL (29.9-35.2); Mean Corpuscular Hemoglobin 28.6 pg (26.7-34.0); Mean Corpuscular Volume 84.8 fL (81.0-99.0); Mean Platelet Volume 9.4 fL (9.5-13.5); Monocytes Absolute Auto 0.6 10^3/uL (0.3-0.8); Monocytes Percent Auto 9.2 % (1.7-12.0); Neutrophils Absolute Auto 3.5 10^3/uL (1.4-6.5); Neutrophils Percent Auto 53.9 % (43.0-75.0); Platelet Count 397 10^3/uL (150-450); Red Blood Count 4.62 10^6/uL (4.20-5.40); Red Cell Distribution Width 13.1 % (11.0-15.0); White Blood Count 6.4 10^3/uL (4.0-11.0)
[2024-12-23 18:12] LABS: Erythrocyte Sedimentation Rate 24 mm/hr (<=20)
[2024-12-25 04:07] LABS: Antistreptolysin O Ab 65.5 IU/mL (0.0-200.0); Rheumatoid Factor (RF) 370.7 IU/mL (<14.0)
[2024-12-28 14:08] LABS: Antinuclear Antibodies, IFA Negative (.)
== END 2024-12-23 16:06 | disposition home or self-care (01) ==
PROVIDERS: PCP Family Medicine; Visit Provider Family Medicine
DX: M19.90 Unspecified osteoarthritis, unspecified site (principal)
CPT/HCPCS: 36415; 84550; 85025; 85652; 86038; 86060; 86140; 86431

== ENCOUNTER 2025-02-24 15:26 | Outpatient (OUT) | payer BC, SELFPAY ==
[2025-02-24 16:07] LABS: Alanine Aminotransferase 29 U/L (14-59); Albumin Globulin Ratio 1.2; Albumin Level 3.7 g/dL (3.4-5.0); Alkaline Phosphatase 57 U/L (46-116); Anion Gap 8.8; Aspartate Amino Transferase 11 U/L (15-37); Blood Urea Nitrogen 16.0 mg/dL (7.0-18.0); Calcium 8.3 mg/dL (8.5-10.1); Carbon Dioxide 32.1 mmol/L (21.0-32.0); Chloride 104 mmol/L (98-107); Estimated GFR (African America >60 (>=60 mL/min/1.73m^2); Estimated GFR (Non-African Ame >60 (>=60 mL/min/1.73m^2); Free T3 1.38 pg/mL (2.18-3.98); Globulin 3.1 g/dL; Glucose 106 mg/dL (74-106); Potassium 3.9 mmol/L (3.5-5.1); Sodium 141 mmol/L (136-145); Thyroid Stimulating Hormone 0.984 uIU/mL (0.358-3.740); Total Protein 6.8 g/dL (6.4-8.2)
--- OUTSIDE RECORDS SUMMARY | 2025-02-24 16:57 | XMS_ITS | CCD ---
Author Organization [facility] CliniSyny Care Team Providers Care Preventive Medicine Specialist Name Role Phone JELENA JOSEPH Unavailable Unavailable DARSHAN, VESELIN Unavailable Unavailable FERNANDO ., DR BOWLES Attending Unavailable FERNANDO ., DR BOWLES Admitting Unavailable FERNANDO ., DR BOWLES Admitting Unavailable FERNANDO ., DR BOWLES Primary Care Unavailable FERNANDO ., DR BOWLES Consulting Unavailable FERNANDO ., DR BOWLES Attending Unavailable ZIEBER, DR MAI Montero Consulting Unavailable Jelena Joseph MD Unavailable JELENA JOSEPH Referring Unavailable VERNON CONNOR Attending Unavailable VERNON CONNOR Referring Unavailable VERNON CONNOR Referring Unavailable VERNON CONNOR Primary Care Unavailable Allergies Allergy Classification Reported Allergen(s) Allergy Type Date of Onset Reaction(s) Facility (3 sources) Sulfonamides (Antibiotic); Translations: [SULFA (SULFONAMIDE ANTIBIOTICS)] Drug Allergy Other: See Comments [facility] Medications Current Medications Medication Drug Class(es) Dates Sig (Normalized) Sig (Original) amitriptyline hydrochloride 150 mg oral tablet (2 sources) Tricyclic Antidepressant take 1 tablet by mouth once daily at bedtime Amitriptyline HCl 150 mg tablet Take 150 mg by mouth daily at bedtime. Active aspirin 81 mg delayed release oral tablet (2 sources) Platelet Aggregation Inhibitor, Nonsteroidal Anti-inflammatory Drug Start: 02-11-2025 take 1 tablet by mouth once daily aspirin, enteric coated (ASPIRIN, ENTERIC COATED) 81 mg EC tablet Take 81 mg by mouth once daily. 02/11/2025 Active buprenorphine 8 mg / naloxone 2 mg sublingual film (2 sources) Partial Opioid Agonist, Opioid Antagonist buprenorphine-nalo xone (SUBOXONE) 8-2 mg film 1 film once daily. Active lisinopril 10 mg oral tablet (2 sources) Angiotensin Converting Enzyme Inhibitor Start: 01-25-2025 take 5 mg by mouth once daily lisinopril (ZESTRIL) 10 mg tablet Take 5 mg by mouth once daily. 01/25/2025 Active predniSONE 20 mg oral tablet (2 sources) Start: 02-11-2025 take 1 tablet by mouth once daily predniSONE (DELTASONE) 20 mg tablet Take 20 mg by mouth once daily. 02/11/2025 Active Problems Active Problems Problem Classification Problem Date Documented Date Episodic/Chronic Diseases of mouth; excluding dental (2 sources) Xerostomia; Translations: [Dry mouth, unspecified] Onset: 02-17-2025 02-17-2025 Episodic Immunizations and screening for infectious disease (16 sources) Rheumatoid factor positive; Translations: [Other specified abnormal immunological findings in serum] Onset: 02-17-2025 01-04-2025 Episodic Malaise and fatigue (2 sources) Fatigue; Translations: [Chronic fatigue, unspecified] Onset: 02-17-2025 02-17-2025 Chronic Other connective tissue disease (5 sources) Pain in right hand; Translations: [PAIN IN RIGHT HAND] Onset: 09-16-2022 Episodic Other connective tissue disease (5 sources) Plantar fasciitis; Translations: [Plantar fascial fibromatosis] 02-17-2025 Episodic Other connective tissue disease (8 sources) Pain in both feet; Translations: [Pain in right foot] 02-17-2025 Episodic Other connective tissue disease (8 sources) Pain of bilateral hands; Translations: [Pain in right hand] 02-17-2025 Episodic Other connective tissue disease (1 source) Pain in right foot; Translations: [Foot pain, bilateral] Onset: 02-17-2025 Episodic Other connective tissue disease (1 source) Pain in left foot; Translations: [Foot pain, bilateral] Onset: 02-17-2025 Episodic Other connective tissue disease (1 source) Pain in left hand; Translations: [Pain in both hands] Onset: 02-17-2025 Episodic Other connective tissue disease (1 source) Plantar fascial fibromatosis; Translations: [Plantar fasciitis] Onset: 02-17-2025 Episodic Other eye disorders (1 source) Tear film insufficiency; Translations: [Dry eye syndrome of bilateral lacrimal glands] 02-17-2025 Episodic Other eye disorders (1 source) Dry eye syndrome of bilateral lacrimal glands; Translations: [Dry eye syndrome of both eyes] Onset: 02-17-2025 Episodic Other female genital disorders (1 source) Other specified abnormal uterine and vaginal bleeding; Translations: [Other specified abnormal uterine and vaginal bleeding] Onset: 05-17-2017 Chronic Other nervous system disorders (1 source) Other chronic pain; Translations: [Chronic midline low back pain without sciatica] Onset: 02-17-2025 Chronic Other nervous system disorders (1 source) Paresthesia; Translations: [Paresthesia of skin] 02-17-2025 Episodic Other nervous system disorders (1 source) Mckeon's palsy; 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] 02-17-2025 Episodic Other nervous system disorders (1 source) Paresthesia of skin; Translations: [Paresthesia] Onset: 02-17-2025 Episodic Other nervous system disorders (1 source) Mckeon's palsy; 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] Onset: 02-17-2025 Episodic Other non-traumatic joint disorders (9 sources) Morning stiffness - joint; Translations: [Stiffness of unspecified joint, not elsewhere classified] 02-17-2025 Episodic Other non-traumatic joint disorders (8 sources) Bilateral shoulder joint pain; Translations: [Pain in right shoulder] 02-17-2025 Episodic Other non-traumatic joint disorders (1 source) Pain in right shoulder; Translations: [Pain of both shoulder joints] Onset: 02-17-2025 Episodic Other non-traumatic joint disorders (1 source) Pain in left shoulder; Translations: [Pain of both shoulder joints] Onset: 02-17-2025 Episodic Other non-traumatic joint disorders (1 source) Stiffness of unspecified joint, not elsewhere classified; Translations: [Morning stiffness of joints] Onset: 02-17-2025 Episodic Other skin disorders (1 source) Xeroderma; Translations: [Xerosis cutis] 02-17-2025 Episodic Other skin disorders (1 source) Xerosis cutis; Translations: [Dry skin] Onset: 02-17-2025 Episodic Rheumatoid arthritis and related disease (11 sources) Inflammatory polyarthropathy; Translations: [Inflammatory polyarthropathy] Onset: 02-17-2025 02-17-2025 Chronic Spondylosis; intervertebral disc disorders; other back problems (12 sources) Stiff neck; Translations: [Chronic low back pain] Onset: 02-17-2025 02-17-2025 Episodic Unclassified (1 source) Chronic midline low back pain without sciatica; Translations: [Chronic midline low back pain without sciatica] Onset: 02-17-2025 Past or Other Problems Problem Classification Problem Date Documented Da te Episodic/Chronic Abdominal pain (1 source) Unspecified abdominal pain; Translations: [Unspecified abdominal pain] Onset: 05-17-2017 Episodic Results Test Name Value Interpretation Reference Range Facility JUAN BY IFA SCREENon 02-18-20 25 Nuclear Ab Ql (S) Negative Normal Negative [facility] Comment on above: Order Comment: Tapan soler Type: BLOOD SPECIMEN Ordering Facility: [facility] Address: [address] [place] [address] Result Comment: Anti -nuclear antibody test is used as an aid in diagnosis of systemic autoimmune diseases. Where positive and clinically warranted, follow-up using disease-specific testing is recommended. Low positive titers are not uncommon with advanced age, certain chronic infections, and malignancies among others. Test methodology: Indirect fluorescence immunoassay (IFA) using HEp-2 cells. Performed By: #### 1 7791-5, 76696-7, 99310-8, 17344-9, 39829-5, 03709-4, 12742-1, 51560-6 #### [facility] CLIA [id number] [address] [place] [address] [place] B. burgdorferi IgG and IgM p ave (S)on 02-17-2025 B. burgdorferi IgG+IgM Qn (S) Negative Normal Negative [facility] Comment on above: Order Comment: Tapan soler Type: BLOOD SPECIMEN Ordering Facility: [facility] Address: [address] [place] [address] Result Comment: Rece nt infection with B. burgdorferi sensu lato cannot be excluded if the specimen collected within four weeks after the onset of signs and symptoms or within six weeks after a known tick exposure. Clinical and epidemiological correlation is required. Performed By: #### 1 7791-5, 44802-9, 32681-4, 68383-5, 51133-9, 42109-2, 48761-9, 21980-3 #### [facility] CLIA [id number] [address] [place] [address] [place] BETA 2 GLYCOPROTEIN, IGGon 0 02-17-2025 Beta 2 glycoprotein 1 IgG IA Qn <9 Normal <20 [facility] Comment on above: Order Comment: Tapan soler Type: BLOOD SPECIMEN Ordering Facility: [facility] Address: [address] [place] [address] Result Comment: <20 SGU Negative 20-80 SGU Low Positive >80 SGU High Positive These results were obtained with the [employer] QUANTA Lite B2 GPI IgG ILAN. B2 GPI IgG values obtained with different manufacturers' assay methods may not be used interchangeably. The magnitude of the reported IgG levels cannot be correlated to an endpoint titer. Performed By: #### 1 7791-5, 33227-0, 98612-9, 13342-8, 39130-1, 78810-8, 91315-4, 61055-0 #### [facility] CLIA [id number] [address] [place] [address] [place] BETA 2 GLYCOPROTEIN, IGMon 0 02-17-2025 Beta 2 glycoprotein 1 IgM IA Qn <9 Normal <20 [facility] Comment on above: Order Comment: Tapan soler Type: BLOOD SPECIMEN Ordering Facility: [facility] Address: [address] [place] [address] Result Comment: <20 SMU Negative 20-80 SMU Low Positive >80 SMU High positive These results were obtained with the [employer] QUANTA Lite B2 GPI IgM ILAN. B2 GPI IgM values obtained with different manufacturers' assay methods may not be used interchangeably. The magnitude of the reported IgM levels cannot be correlated to an endpoint titer. Performed By: #### 1 7791-5, 42840-8, 72595-0, 44454-3, 54258-2, 13560-7, 92982-0, 06736-2 #### [facility] CLIA [id number] [address] [place] [address] [place] C3 SerPl-mCncon 02-17-2025 Complement C3 [Mass/Vol] 129 mg/dL Normal 86-166 [facility] Comment on above: Order Comment: Speci men Type: BLOOD SPECIMEN Ordering Facility: [facility] Address: [address] [place] [address] Performed By: #### 1 7791-5, 53154-5, 24940-6, 80819-6, 84566-8, 85295-9, 21957-7, 68324-4 #### [facility] CLIA [id number] [address] [place] [address] [place] C4 SerPl-mCncon 02-17-2025 Complement C4 [Mass/Vol] 18 mg/dL Normal 13-46 [facility] Comment on above: Order Comment: Speci men Type: BLOOD SPECIMEN Ordering Facility: [facility] Address: [address] [place] [address] Performed By: #### 1 7791-5, 70639-0, 09844-7, 49751-5, 49153-5, 94801-8, 81568-4, 79628-8 #### [facility] CLIA [id number] [address] [place] [address] [place] CARDIOLIPIN IGG ABSon 2024 Cardiolipin IgG IA Qn (S) <9.0 Normal <15.0 [facility] Comment on above: Order Comment: Speci ryder Type: BLOOD SPECIMEN Ordering Facility: [facility] Address: [address] [place] [address] Result Comment: <15 GPL Negative 15-20 GPL Indeterminate >20 GPL Positive The following results were obtained with the [employer] QUANTA Lite DONAL IgG III ILAN. Cardiolipin IgG values obtained with the different manufacturers' assay methods may not be used interchangeably. The magnitude of the reported IgG levels cannot be correlated to an endpoint titer. Performed By: #### 1 7791-5, 92091-4, 04387-4, 26111-0, 46996-1, 35915-0, 05128-8, 67376-1 #### [facility] CLIA [id number] [place] CARDIOLIPIN IGM ABSon 2024 Cardiolipin IgM IA Qn (S) 16.0 MPL High <12.5 [facility] Comment on above: Order Comment: Speci men Type: BLOOD SPECIMEN Ordering Facility: [facility] Address: [address] [place] [address] Result Comment: <12. 5 MPL Negative 12.5-20 MPL Indeterminate >20 MPL Positive The following results were obtained with the [employer] Lite DONAL IgM III ILAN. Cardiolipin IgM values obtained with the different manufacturers' assay methods may not be used interchangeably. The magnitude of the reported IgM levels cannot be correlated to an endpoint titer. ??? Performed By: #### 1 7791-5, 51083-4, 44200-7, 30619-4, 24038-9, 52559-2, 24800-1, 82547-8 #### [facility] CLIA [id number] [address] [place] [address] [place] CBC panel Auto (Bld)on 02-17 Erythrocyte distribution width (RBC) [Ratio] 13.8 % 11.5 - 15.0 % [facility] Hematocrit (Bld) [Volume fraction] 40.5 % 36.0 - 46.0 % [facility] Hemoglobin (Bld) [Mass/Vol] 13.2 g/dL 11.5 - 15.5 g/dL [facility] Interpretation and review of laboratory results Abnormal [facility] MCH (RBC) [Entitic mass] 28.0 pg 26.0 - 34.[address] [facility] MCHC (RBC) [Mass/Vol] 32.6 g/dL 30.5 - 36.0 g/dL [facility] MCV (RBC) [Entitic vol] 85.8 fL 80.0 - 100.[address] [facility] Nucleated RBC (Bld) [#/Vol] NINF [facility] Platelet mean volume (Bld) [Entitic vol] 9.7 fL 9.0 - 12.[address] [facility] Platelets (Bld) [#/Vol] 409 10*3/uL High [facility] RBC (Bld) [#/Vol] 4.72 10*6/uL 3.90 - 5.2 0 m/uL [facility] WBC (Bld) [#/Vol] 8.01 10*3/uL [facility] Erythrocyte distribution width (RBC) [Ratio] 13.8 % Normal 11.5-15.0 [facility] Comment on above: Order Comment: Speci men Type: BLOOD SPECIMEN Ordering Facility: [facility] Address: [address] [place] [address] Performed By: #### 1 7791-5, 89831-2, 69321-8, 95301-3, 05161-6, 19361-4, 85214-7, 90185-4 #### [facility] CLIA [id number] [address] [place] [address] [place] Hematocrit (Bld) [Volume fraction] 40.5 % Normal 36.0-46.0 [facility] Comment on above: Order Comment: Speci men Type: BLOOD SPECIMEN Ordering Facility: [facility] Address: [address] [place] [address] Performed By: #### 1 7791-5, 15866-1, 51981-2, 98868-6, 58174-8, 92105-0, 34419-9, 71085-9 #### [facility] CLIA [id number] [address] [place] [address] [place] Hemoglobin (Bld) [Mass/Vol] 13.2 g/dL Normal 11.5-15.5 [facility] Comment on above: Order Comment: Speci men Type: BLOOD SPECIMEN Ordering Facility: [facility] Address: [address] [place] [address] Performed By: #### 1 7791-5, 59909-3, 69366-8, 65312-8, 44040-0, 80716-8, 85615-8, 24449-6 #### [facility] CLIA [id number] [address] [place] [address] [place] MCH (RBC) [Entitic mass] 28.0 pg Normal 26.0-34.0 [facility] Comment on above: Order Comment: Speci men Type: BLOOD SPECIMEN Ordering Facility: [facility] Address: [address] [place] [address] Performed By: #### 1 7791-5, 82087-0, 00024-9, 44096-9, 65267-4, 66644-5, 75777-9, 96020-3 #### [facility] CLIA [id number] [address] [place] [address] [place] MCHC (RBC) [Mass/Vol] 32.6 g/dL Normal 30.5-36.0 [facility] Comment on above: Order Comment: Speci men Type: BLOOD SPECIMEN Ordering Facility: [facility] Address: [address] [place] [address] Performed By: #### 1 7791-5, 18119-4, 28146-5, 60783-6, 46331-5, 57060-7, 77051-3, 68470-8 #### [facility] CLIA [id number] [address] [place] [address] [place] MCV (RBC) [Entitic vol] 85.8 fL Normal 80.0-100.0 [facility] Comment on above: Order Comment: Speci men Type: BLOOD SPECIMEN Ordering Facility: [facility] Address: [address] [place] [address] Performed By: #### 1 7791-5, 40272-2, 84096-9, 23585-2, 08967-8, 32407-5, 58859-6, 95250-1 #### [facility] CLIA [id number] [address] [place] [address] [place] Nucleated RBC (Bld) [#/Vol] 10*3/uL Normal <0.01 [facility] Comment on above: Order Comment: Speci men Type: BLOOD SPECIMEN Ordering Facility: [facility] Address: [address] [place] [address] Performed By: #### 1 7791-5, 47634-5, 42818-7, 75103-2, 01723-6, 49399-8, 64234-1, 31508-3 #### [facility] CLIA [id number] [address] [place] [address] [place] Platelet mean volume (Bld) [Entitic vol] 9.7 fL Normal 9.0-12.7 [facility] Comment on above: Order Comment: Speci men Type: BLOOD SPECIMEN Ordering Facility: [facility] Address: [address] [place] [address] Performed By: #### 1 7791-5, 53610-3, 49165-5, 09542-9, 24010-9, 31991-0, 14148-6, 07386-0 #### [facility] CLIA [id number] [address] [place] [address] [place] Platelets (Bld) [#/Vol] 409 10*3/uL High 150-400 [facility] Comment on above: Order Comment: Speci men Type: BLOOD SPECIMEN Ordering Facility: [facility] Address: [address] [place] [address] Performed By: #### 1 7791-5, 33736-4, 92002-2, 53038-7, 28234-7, 78042-1, 92611-7, 16650-5 #### [facility] CLIA [id number] [address] [place] [address] [place] RBC (Bld) [#/Vol] 4.72 10*6/uL Normal 3.90-5.20 [facility] Comment on above: Order Comment: Speci men Type: BLOOD SPECIMEN Ordering Facility: [facility] Address: [address] [place] [address] Performed By: #### 1 7791-5, 04691-3, 95913-3, 45294-6, 10772-9, 94898-3, 63359-8, 06619-6 #### [facility] CLIA [id number] [address] [place] [address] [place] WBC (Bld) [#/Vol] 8.01 10*3/uL Normal 3.70-11.00 [facility] Comment on above: Order Comment: Speci men Type: BLOOD SPECIMEN Ordering Facility: [facility] Address: [address] [place] [address] Performed By: #### 1 7791-5, 06069-0, 93141-1, 81651-3, 58340-7, 55713-2, 70191-8, 40400-0 #### [facility] CLIA [id number] [address] [place] [address] [place] CNOVon 02-17-2025 CNOV Office Visit (RHEUMN ) ZULEMA DOTSON ([id number]) 1980 F Date Time Provider Department 02/17/25 10:00 AM VERNON CONNOR RHEUMN During your visit today, we recorded the following information about you: Temperature Pulse Blood pressure Weight 97.9 degrees 81/minute 141/89 82.2 kg Height 1.575 m Vernon Connor, [employer] STARTER.BEEF SPLITTER 02/17/2025 4:50 PM Signed Rheumatology CONSULTATION Date of Service: 02/17/2025 Patient: Zulema Nila Medical Record: [id number] Primary Care Physician: No primary care provider on file. Last Rheumatology visit: None at [facility] Referring Provider: Jelena Joseph [address] [facility] [address] Chief Complaint: No chief complaint on file. Zulema Dotson is here today at request of Dr. Joseph specifically for consultation of my opinion in regards to the chief complaint listed above. Correspondence will be shared today via the [employer] electronic health record or through regular mail, where applicable. HPI: Zulema Dotson is a 44-year-old female, with a history of HTN and anemia, presenting with joint pain and stiffness and elavted RF of 370 (normal <14). Her is with her today to provide support. PMH: HTN, plantar fasciitis, bells palsy Zulema reports onset of symptoms approximately 3-4 months ago, beginning with bilateral shoulder pain, initially thought to be tendinitis. She received corticosteroid injections and oral prednisone, which provided temporary relief. She also reports decreased range of motion in her shoulders and muscle weakness. She experiences bilateral knee pain, particularly after prolonged walking, and describes a sensation of walking on Legos in the mornings, which improves after about an hour of ambulation. She also reports bilateral hand pain, particularly in the PIP joints, and frequent charley horses in her fingers and toes, more pronounced on the right side. She notes popping in her wrists but denies significant pain. She denies elbow pain. She reports numbness and a burning sensation in her fingertips and toes, particularly in the little fingers and toes, which is a new symptom. She also experiences TMJ pain occasionally. She reports morning stiffness in her lower back and between her shoulder blades, which improves with movement. She denies hip or ankle pain but reports significant foot pain and cramping during the day. She experiences dry mouth and requires fluids to swallow food, particularly in the mornings. She also reports dry, itchy eyes and blurry vision, which varies in severity. She has not seen an eye doctor recently. She denies fevers, significant weight loss, rashes, or skin changes but reports photosensitivity, with her face becoming red and flushed after sun exposure. She denies hair loss, nail changes, oral ulcers, nosebleeds, chest pain, leg swelling, cough, or dyspnea. She reports occasional heartburn, managed with medication, and denies abdominal pain, diarrhea, or black tarry stools. She denies dysuria, hematuria, or genital ulcers. She reports fatigue, memory loss, and brain fog, which started around the same time as her other symptoms. She denies seizures or blood clots. She has a history of two first-trimester miscarriages, one of which required a DANDC and resulted in hemorrhage. 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 She reports a hot work environment (up to 105 degrees), leading to concerns about dehydration. She has a family history of possible psoriasis in her father and rheumatoid arthritis in her mother, who also had multiple back surgeries. Her 17-year-old daughter had elevated rheumatoid factor levels and was evaluated for lupus at age 14-15. ROS: Review of Systems CONSTITUTION: Positive for: Fever HEENT: Positive for: Trouble swallowing and Dry mouth Negative for: Nosebleeds and Mouth sores RESPIRATORY: Negative for: Cough, Shortness of breath, Pain with breathing and Coughing up blood GASTROINTESTINAL: Positive for: Heartburn Negative for: Melena, Diarrhea and Abdominal pain MUSCULOSKELETAL: Positive for: Arthralgias, Myalgias, Muscle weakness and Morning Joint Stiffness Negative for: Joint swelling NEUROLOGICAL: Positive for: Numbness and Memory loss Negative for: Headaches SKIN: Negative for: Rash, Sun Sensitive Rash, Skin changes and Hair loss EYES: Positive for: Eye dryness and Visual disturbance Negative for: Eye pain and Eye redness CARDIOVASCULAR: Negative for: Chest pain and Leg swelling GENITOURINARY: Negative for: Dysuria, Hematuria and Ulcerations HEMATOLOGIC/LYMPHATIC: Negative for: Swollen glands PMH HTN, bells palsy, plantar fasciitis, shoulder tenonitis SHX: x 2, DANDC x 2 FHX: father psoriasis, CHF. M (more content not included)... Normal [facility] CRP SerPl-mCncon 02-17-2025 CRP [Mass/Vol] mg/L Normal <0.9 [facility] Comment on above: Order Comment: Speci men Type: BLOOD SPECIMEN Ordering Facility: [facility] Address: [address] [place] [address] Performed By: #### 1 7791-5, 09134-2, 03245-7, 54924-8, 23271-3, 30015-0, 67970-4, 88423-8 #### [facility] CLIA [id number] [address] [place] [address] [place] Cardiolipin IgA Ser IA-aCnco n 02-17-2025 Cardiolipin IgA IA Qn (S) <9.0 Normal <12.0 [facility] Comment on above: Order Comment: Tapan soler Type: BLOOD SPECIMEN Ordering Facility: [facility] Address: [address] [place] [address] Result Comment: <12 APL Negative 12-20 APL Indeterminate >20 APL Positive The following results were obtained with the [employer] QUANTA Lite DONAL IgA III ILAN. Cardiolipin IgA values obtained with the different manufacturers' assay methods may not be used interchangeably. The magnitude of the reported IgA levels cannot be correlated to an endpoint titer. Performed By: #### 1 7791-5, 61502-5, 51467-3, 69494-2, 09299-1, 00013-7, 95493-9, 03237-7 #### [facility] CLIA [id number] [address] [place] [address] [place] Centromere Ab IF Ql (S)on Centromere Ab Qn (S) <0.2 Normal <1.0 [facility] Comment on above: Order Comment: Tapan soler Type: BLOOD SPECIMEN Ordering Facility: [facility] Address: [address] [place] [address] Result Comment: Anti -centromere antibody is used as in aid in diagnosis of systemic sclerosis. Clinical correlation is required. Test Methodology: Multiplex flow immunoassay. Performed By: #### 1 7791-5, 17657-8, 43688-4, 19091-3, 37030-2, 94801-4, 55030-3, 33399-1 #### [facility] CLIA [id number] [address] [place] [address] [place] CENTROMERE AB QUAL Negative Normal Negative [facility] Comment on above: Order Comment: Tapan soler Type: BLOOD SPECIMEN Ordering Facility: [facility] Address: [address] [place] [address] Performed By: #### 1 7791-5, 62804-4, 63887-5, 50596-8, 26970-8, 12491-9, 03565-7, 41036-3 #### [facility] CLIA [id number] [address] [place] [address] [place] Chromatin Ab Qnon 02-17-2025 CHROMATIN AB QUAL Negative Normal Negative [facility] Comment on above: Order Comment: Speci men Type: BLOOD SPECIMEN Ordering Facility: [facility] Address: [address] [place] [address] Performed By: #### 1 7791-5, 25041-9, 33161-3, 74843-0, 84318-0, 44206-2, 78685-8, 40238-3 #### [facility] CLIA [id number] [address] [place] [address] [place] Chromatin Ab SerPl-aCncon Chromatin Ab Qn <0.2 Normal <1.0 [facility] Comment on above: Order Comment: Speci men Type: BLOOD SPECIMEN Ordering Facility: [facility] Address: [address] [place] [address] Result Comment: Test Methodology: Multiplex flow immunoassay. Performed By: #### 1 7791-5, 83276-3, 64141-6, 99352-5, 18839-6, 41014-6, 22590-9, 98478-0 #### [facility] CLIA [id number] [address] [place] [address] [place] Comprehensive metabolic 2000 panelon 02-17-2025 Albumin [Mass/Vol] 4.3 g/dL 3.9 - 4.9 g/dL [facility] ALP [Catalytic activity/Vol] 53 U/L 34 - 123 U/L [facility] ALT [Catalytic activity/Vol] 20 U/L 7 - 38 U/L [facility] Anion gap [Moles/Vol] 13 mmol/L 8 - 15 mmol/L [facility] AST [Catalytic activity/Vol] 17 U/L 13 - 35 U/L [facility] Bilirubin [Mass/Vol] 0.4 mg/dL 0.2 - 1 .3 mg/dL [facility] Calcium [Mass/Vol] 9.2 mg/dL 8.5 - 10. 2 mg/dL [facility] Chloride [Moles/Vol] 101 mmol/L 98 - 10 7 mmol/L [facility] CO2 [Moles/Vol] 26 mmol/L 22 - 30 mmol/L [facility] Creatinine [Mass/Vol] 0.62 mg/dL 0.58 - 0.96 mg/dL [facility] GFR/1.73 sq M.predicted among non-blacks MDRD (S/P/Bld) [Vol rate/Area] 113 mL/min/{1.73_m2} - PINF [facility] Comment on above: Estimated Glomerular Filtration Rate (eGFR) is calculated using the 2020 CKD-EPI creatinine equation. This equation utilizes serum creatinine, sex, and age as parameters. The creatinine assay has traceable calibration to isotope dilution-mass spectrometry. Refer to KDIGO guidelines for clinical interpretation. In patients with unstable renal function, e.g. those with acute kidney injury, the eGFR may not accurately reflect actual GFR. Glucose [Mass/Vol] 86 mg/dL 74 - 99 mg/dL [facility] Comment on above: The English Diabete s Association (ADA) provides guidance for cutoff values for fasting glucose and random glucose. The ADA defines fasting as no caloric intake for at least 8 hours. Fasting plasma glucose results between 100 to 125 mg/dL indicate increased risk for diabetes (prediabetes). Fasting plasma glucose results greater than or equal to 126 mg/dL meet the criteria for diagnosis of diabetes. In the absence of unequivocal hyperglycemia, results should be confirmed by repeat testing. In a patient with classic symptoms of hyperglycemia or hyperglycemic crisis, random plasma glucose results greater than or equal to 200 mg/dL meet the criteria for diagnosis of diabetes. Reference: Standards of Medical Care in Diabetes 2016, [place] Diabetes Association. Diabetes Care. 2016.39(Suppl 1). Interpretation and review of laboratory results Abnormal [facility] Potassium [Moles/Vol] 3.3 mmol/L Low 3.7 - 5.1 mmol/L [facility] Protein [Mass/Vol] 7.2 g/dL 6.3 - 8.0 g/dL [facility] Sodium [Moles/Vol] 140 mmol/L 136 - 144 mmol/L [facility] Urea nitrogen [Mass/Vol] 12 mg/dL 7 - 21 mg/dL [facility] Albumin [Mass/Vol] 4.3 g/dL Normal 3.9-4.9 [facility] Comment on above: Order Comment: Speci men Type: BLOOD SPECIMEN Ordering Facility: [facility] Address: [address] [place] [address] Performed By: #### 1 7791-5, 20617-6, 73265-5, 15203-7, 27766-5, 45736-0, 10797-3, 91584-1 #### [facility] CLIA [id number] [address] [place] [address] [place] ALP [Catalytic activity/Vol] 53 U/L Normal 34-123 [facility] Comment on above: Order Comment: Speci men Type: BLOOD SPECIMEN Ordering Facility: [facility] Address: [address] [place] [address] Performed By: #### 1 7791-5, 41839-3, 12963-7, 15875-5, 85204-1, 05111-3, 14316-4, 21866-2 #### [facility] CLIA [id number] [address] [place] [address] [place] ALT [Catalytic activity/Vol] 20 U/L Normal 7-38 [facility] Comment on above: Order Comment: Speci men Type: BLOOD SPECIMEN Ordering Facility: [facility] Address: [address] [place] [address] Performed By: #### 1 7791-5, 36412-8, 39142-3, 97698-1, 98190-2, 59189-5, 59220-2, 20579-6 #### [facility] CLIA [id number] [address] [place] [address] [place] Anion gap [Moles/Vol] 13 mmol/L Normal 8-15 [facility] Comment on above: Order Comment: Speci men Type: BLOOD SPECIMEN Ordering Facility: [facility] Address: [address] [place] [address] Performed By: #### 1 7791-5, 32425-3, 52515-5, 47574-6, 94236-0, 11575-4, 66245-4, 69356-2 #### [facility] CLIA [id number] [address] [place] [address] [place] AST [Catalytic activity/Vol] 17 U/L Normal 13-35 [facility] Comment on above: Order Comment: Speci men Type: BLOOD SPECIMEN Ordering Facility: [facility] Address: [address] [place] [address] Performed By: #### 1 7791-5, 83767-3, 96548-2, 04056-9, 01476-4, 57153-5, 69198-0, 05580-0 #### [facility] CLIA [id number] [address] [place] [address] [place] Bilirubin [Mass/Vol] 0.4 mg/dL Normal 0.2-1.3 [facility] Comment on above: Order Comment: Speci men Type: BLOOD SPECIMEN Ordering Facility: [facility] Address: [address] [place] [address] Performed By: #### 1 7791-5, 70001-4, 45993-8, 35099-3, 78722-0, 54430-7, 55031-9, 76237-7 #### [facility] CLIA [id number] [address] [place] [address] [place] Calcium [Mass/Vol] 9.2 mg/dL Normal 8.5-10.2 [facility] Comment on above: Order Comment: Speci men Type: BLOOD SPECIMEN Ordering Facility: [facility] Address: [address] [place] [address] Performed By: #### 1 7791-5, 95443-8, 14706-6, 54773-2, 97287-2, 75233-6, 39348-8, 31010-0 #### [facility] CLIA [id number] [address] [place] [address] [place] Chloride [Moles/Vol] 101 mmol/L Normal 98-107 [facility] Comment on above: Order Comment: Speci men Type: BLOOD SPECIMEN Ordering Facility: [facility] Address: [address] [place] [address] Performed By: #### 1 7791-5, 70473-0, 30614-8, 06715-2, 99121-1, 88869-0, 57059-4, 91290-2 #### [facility] CLIA [id number] [address] [place] [address] [place] CO2 [Moles/Vol] 26 mmol/L Normal 22-30 [facility] Comment on above: Order Comment: Speci men Type: BLOOD SPECIMEN Ordering Facility: [facility] Address: [address] [place] [address] Performed By: #### 1 7791-5, 47031-0, 51052-3, 13024-7, 03822-6, 21065-5, 39687-9, 97696-3 #### [facility] CLIA [id number] [address] [place] [address] [place] Creatinine [Mass/Vol] 0.62 mg/dL Normal 0.58-0.96 [facility] Comment on above: Order Comment: Speci men Type: BLOOD SPECIMEN Ordering Facility: [facility] Address: [address] [place] [address] Performed By: #### 1 7791-5, 98718-4, 88599-3, 93634-2, 94459-8, 98841-5, 10480-4, 49660-0 #### [facility] CLIA [id number] [address] [place] [address] [place] eGFRcr SerPlBld CKD-EPI 2020 113 mL/min/1.73m??? Normal >=60 [facility] Comment on above: Order Comment: Speci men Type: BLOOD SPECIMEN Ordering Facility: [facility] Address: [address], [place] [address] Result Comment: Debby mated Glomerular Filtration Rate (eGFR) is calculated using the 2020 CKD-EPI creatinine equation. This equation utilizes serum creatinine, sex, and age as parameters. The creatinine assay has traceable calibration to isotope dilution-mass spectrometry. Refer to KDIGO guidelines for clinical interpretation. In patients with unstable renal function, e.g. those with acute kidney injury, the eGFR may not accurately reflect actual GFR. Performed By: #### 1 7791-5, 40118-1, 91625-6, 11108-7, 09584-7, 20789-5, 26871-3, 07028-0 #### [facility] CLIA [id number] [address] [place] [address] [place] Glucose [Mass/Vol] 86 mg/dL Normal 74-99 [facility] Comment on above: Order Comment: Tapan soler Type: BLOOD SPECIMEN Ordering Facility: [facility] Address: [address] [place] [address] Result Comment: The [place] Diabetes Association (ADA) provides guidance for cutoff values for fasting glucose and random glucose. The ADA defines fasting as no caloric intake for at least 8 hours. Fasting plasma glucose results between 100 to 125 mg/dL indicate increased risk for diabetes (prediabetes). Fasting plasma glucose results greater than or equal to 126 mg/dL meet the criteria for diagnosis of diabetes. In the absence of unequivocal hyperglycemia, results should be confirmed by repeat testing. In a patient with classic symptoms of hyperglycemia or hyperglycemic crisis, random plasma glucose results greater than or equal to 200 mg/dL meet the criteria for diagnosis of diabetes. Reference: Standards of Medical Care in Diabetes 2016, [place] Diabetes Association. Diabetes Care. 2016.39(Suppl 1). Performed By: #### 1 7791-5, 12667-0, 44327-8, 22645-8, 17715-2, 53552-7, 23915-6, 89855-1 #### [facility] CLIA [id number] [address] [place] [address] [place] Potassium [Moles/Vol] 3.3 mmol/L Low 3.7-5.1 [facility] Comment on above: Order Comment: Speci men Type: BLOOD SPECIMEN Ordering Facility: [facility] Address: [address] [place] [address] Performed By: #### 1 7791-5, 38206-6, 75479-8, 24798-7, 56435-2, 34178-2, 62264-3, 04427-4 #### [facility] CLIA [id number] [address] [place] [address] [place] Protein [Mass/Vol] 7.2 g/dL Normal 6.3-8.0 [facility] Comment on above: Order Comment: Speci men Type: BLOOD SPECIMEN Ordering Facility: [facility] Address: [address] [place] [address] Performed By: #### 1 7791-5, 52328-7, 94653-9, 29963-9, 48073-4, 50573-7, 23824-4, 63748-0 #### [facility] CLIA [id number] [address] [place] [address] [place] Sodium [Moles/Vol] 140 mmol/L Normal 136-144 [facility] Comment on above: Order Comment: Speci men Type: BLOOD SPECIMEN Ordering Facility: [facility] Address: [address] [place] [address] Performed By: #### 1 7791-5, 14115-8, 98132-2, 03023-3, 48395-6, 14725-1, 94597-1, 54609-6 #### [facility] CLIA [id number] [address] [place] [address] [place] Urea nitrogen [Mass/Vol] 12 mg/dL Normal 7-21 [facility] Comment on above: Order Comment: Speci men Type: BLOOD SPECIMEN Ordering Facility: [facility] Address: [address] [place] [address] Performed By: #### 1 7791-5, 49510-6, 05071-3, 44226-2, 89934-6, 87742-9, 42946-9, 09295-3 #### [facility] CLIA [id number] [address] [place] [address] [place] Cyclic citrullinated peptide IgG Qnon 02-17-2025 CCP ANTIBODY IGG QUALITATIVE Positive Abnormal Negative [facility] Comment on above: Order Comment: Speci men Type: BLOOD SPECIMEN Ordering Facility: [facility] Address: [address] [place] [address] Performed By: #### 1 7791-5, 63044-0, 18093-8, 62094-9, 22596-6, 84677-6, 64995-8, 02483-4 #### [facility] CLIA [id number] [address] [place] [address] [place] DNA double strand Ab IA Qn ( S)on 02-17-2025 DNA ANTIBODY 25 IU/mL Normal <=200 [facility] Comment on above: Order Comment: Speci men Type: BLOOD SPECIMEN Ordering Facility: [facility] Address: [address] [place] [address] Result Comment: Nega tive: <200 IU/mL Equivocal: 201-300 IU/mL Moderate Positive: 301-800 IU/mL Strong Positive: >801 IU/mL Performed By: #### 1 7791-5, 64479-1, 59687-9, 49694-8, 94811-9, 32402-8, 56799-1, 03718-2 #### [facility] CLIA [id number] [address] [place] [address] [place] DNA ANTIBODY QUALITATIVE INTERPRETATION Negative Normal Negative [facility] Comment on above: Order Comment: Speci men Type: BLOOD SPECIMEN Ordering Facility: [facility] Address: [address] [place] [address] Performed By: #### 1 7791-5, 31645-8, 56803-0, 66238-0, 94774-4, 21167-6, 93517-6, 73785-4 #### [facility] CLIA [id number] [address] [place] [address] [place] RADHA Jo1 Ab Ser-aCncon 2024 Yanira-1 extractable nuclear Ab Qn (S) <0.2 Normal <1.0 [facility] Comment on above: Order Comment: Speci men Type: BLOOD SPECIMEN Ordering Facility: [facility] Address: [address] [place] [address] Performed By: #### 1 7791-5, 07434-2, 88152-5, 72433-8, 68830-4, 75296-3, 99002-4, 18462-4 #### [facility] CLIA [id number] [address] [place] [address] [place] RADHA [employer] Ab Ser-aCncon 2024 Ribonucleoprotein extractable nuclear Ab Qn (S) <0.2 Normal <1.0 [facility] Comment on above: Order Comment: Speci men Type: BLOOD SPECIMEN Ordering Facility: [facility] Address: [address] [place] [address] Performed By: #### 1 7791-5, 82716-3, 84499-6, 33098-0, 03143-7, 39344-0, 28912-0, 93018-0 #### [facility] CLIA [id number] [address] [place] [address] [place] RADHA SM IgG Ser-aCncon 2024 Garcia extractable nuclear IgG Qn (S) <0.2 Normal <1.0 [facility] Comment on above: Order Comment: Speci men Type: BLOOD SPECIMEN Ordering Facility: [facility] Address: [address] [place] [address] Performed By: #### 1 7791-5, 22088-1, 52518-7, 21509-8, 68036-4, 82255-9, 82236-4, 31557-5 #### [facility] CLIA [id number] [address] [place] [address] [place] RADHA SS-A Ab Ser-aCncon 02-17 Sjogrens syndrome-A extractable nuclear Ab Qn (S) <0.2 Normal <1.0 [facility] Comment on above: Order Comment: Speci ryder Type: BLOOD SPECIMEN Ordering Facility: [facility] Address: [address] [place] [address] Result Comment: Test Methodology: Multiplex flow immunoassay. Performed By: #### 1 7791-5, 80319-9, 19709-8, 78230-1, 55704-9, 68738-1, 42089-9, 99705-6 #### [facility] CLIA [id number] [address] [place] [address] [place] RADHA SS-B Ab Ser-aCncon 02-17 Sjogrens syndrome-B extractable nuclear Ab Qn (S) <0.2 Normal <1.0 [facility] Comment on above: Order Comment: Speci ryder Type: BLOOD SPECIMEN Ordering Facility: [facility] Address: [address] [place] [address] Result Comment: Anti -SSB (anti-La) antibody is used as an aid in diagnosis of a variety of systemic autoimmune diseases, especially for Sjogren's syndrome and systemic lupus erythematosus. Clinical correlation is required. Test Methodology: Multiplex flow immunoassay. Performed By: #### 1 7791-5, 68717-4, 46477-0, 34678-5, 29738-6, 75665-6, 32545-4, 78958-6 #### [facility] CLIA [id number] [address] [place] [address] [place] ESR Westergren method (Bld) [Velocity]on 02-17-2025 ESR (Bld) [Velocity] 5 mm/h [facility] Interpretation and review of laboratory results Normal [facility] ESR (Bld) [Velocity] 5 mm/h Normal 0-20 [facility] Comment on above: Order Comment: Speci men Type: BLOOD SPECIMEN Ordering Facility: [facility] Address: [address] [place], [place] [address] Performed By: #### 1 7791-5, 71938-2, 72389-3, 30402-2, 26455-6, 46029-7, 98683-0, 76227-7 #### [facility] CLIA [id number] [address] [place] [address] [place] HLA-B27 PCRon 02-17-2025 HLA-B27 DNA RESULT Negative Normal [facility] Comment on above: Order Comment: Speci men Type: BLOOD SPECIMEN Ordering Facility: [facility] Address: [address] [place] [address] Result Comment: HLA- B27 is strongly associated with ankylosing spondylitis (). HLA-B27 is also associated with other seronegative arthropathies such as Miguel syndrome and psoriatic arthritis as well as extra-articular diseases such as anterior uveitis and inflammatory bowel disease. Greater than 90% of patients with are HLA-B27 positive. The frequency of HLA-B27 varies by ethnic group but generally <10 % in most [place] populations. HLA-B27 associated susceptibility to varies by population and HLA-B27 alleles detected. Some alleles such as B27:05 are associated with high susceptibility while others such B27:06 and B27:09 are associated with low susceptibility. HLA-B27 allele typing is recommended in HLA-B27 positive cases. HLA typing performed by PCR-RSSOP and/or NGS. This test was developed and its performance characteristics determined by [facility]. The test has not been cleared or approved by the [place] FDA. However, FDA approval was not necessary since this lab is certified under CLIA for high complexity testing. Test performed by: [facility], [address] [place], [place] [address] [place] [id number] [id number], CLIA [id number] Performed By: #### 1 7791-5, 68429-5, 95644-0, 02461-9, 40308-4, 14705-8, 98472-5, 40757-1 #### [facility] CLIA [id number] [address] [place], [place] [address] [place] Yanira-1 extractable nuclear Ab Qn (S)on 02-17-2025 YANIRA 1 ANTIBODY QUAL Negative Normal Negative [facility] Comment on above: Order Comment: Specnatalie soler Type: BLOOD SPECIMEN Ordering Facility: [facility] Address: [address] [place] [address] Result Comment: Anti -YANIRA-1 antibody is used as an aid in diagnosis of polymyositis and dermatomyositis especially with pulmonary involvement. A negative result cannot rule out polymyositis or dermatomyositis. Clinical correlation is required. Test Methodology: Multiplex flow immunoassay. Performed By: #### 1 7791-5, 92037-3, 58341-9, 50836-7, 80686-0, 02190-0, 08538-0, 86731-5 #### [facility] CLIA [id number] [address] [place] [address] [place] LUPUS PANELon 02-17-2025 aPTT Coag (Bld) [Time] 36.4 s Normal 30.2-43.[address] [facility] Comment on above: Order Comment: Tapan soler Type: BLOOD SPECIMEN Ordering Facility: [facility] Address: [address] [place] [address] Result Comment: This test was developed, and its performance characteristics determined by the [facility] Department of Pathology and Laboratory Medicine. It has not been cleared or approved by the FDA. The [facility] Department of Pathology and Laboratory Medicine is regulated under CLIA as qualified to perform high-complexity testing. This test is used for clinical purposes. It should not be regarded as investigational or for research. Performed By: #### 1 7791-5, 11224-3, 49630-1, 37021-7, 55909-7, 92105-4, 69499-3, 19875-2 #### [facility] CLIA [id number] [address] [place] [address] [place] aPTT Coag (Bld) [Time] 34.6 s Normal 31.5-38.[address] [facility] Comment on above: Order Comment: Tapan soler Type: BLOOD SPECIMEN Ordering Facility: [facility] Address: [address] [place] [address] Result Comment: This test was developed, and its performance characteristics determined by the [facility] Department of Pathology and Laboratory Medicine. It has not been cleared or approved by the FDA. The [facility] Department of Pathology and Laboratory Medicine is regulated under CLIA as qualified to perform high-complexity testing. This test is used for clinical purposes. It should not be regarded as investigational or for research. Performed By: #### 1 7791-5, 17130-6, 52492-3, 49562-2, 85217-0, 76028-0, 86042-4, 76455-1 #### [facility] CLIA [id number] [address] [place] [address] [place] aPTT Coag (Bld) [Time] 30.0 s Normal 24.0-35.[address] [facility] Comment on above: Order Comment: Speci men Type: BLOOD SPECIMEN Ordering Facility: [facility] Address: [address] [place] [address] Performed By: #### 1 7791-5, 84833-5, 54041-6, 93577-5, 84846-7, 22101-7, 08935-5, 12738-2 #### [facility] CLIA [id number] [address] [place] [address] [place] aPTT W excess hexagonal phase phospholipid Coag (PPP) [Time] 40.8 seconds Normal 34.0-51.8 [facility] Comment on above: Order Comment: Speci men Type: BLOOD SPECIMEN Ordering Facility: [facility] Address: [address] [place] [address] Performed By: #### 1 7791-5, 93765-0, 75580-6, 42029-1, 30395-9, 41745-0, 47592-7, 44541-3 #### [facility] CLIA [id number] [address] [place] [address] [place] Coagulation factor X activated act Coag Qn (PPP) <0.10 Normal <0.10 [facility] Comment on above: Order Comment: Speci men Type: BLOOD SPECIMEN Ordering Facility: [facility] Address: [address] [place] [address] Result Comment: This test was developed, and its performance characteristics determined by the [facility] Department of Pathology and Laboratory Medicine. It has not been cleared or approved by the FDA. The [facility] Department of Pathology and Laboratory Medicine is regulated under CLIA as qualified to perform high-complexity testing. This test is used for clinical purposes. It should not be regarded as investigational or for research. Performed By: #### 1 7791-5, 71251-1, 47576-8, 15812-9, 82695-3, 52419-1, 36060-5, 79891-5 #### [facility] CLIA [id number] [address] [place] [address] [place] Delta dRVVT Coag (PPP) [Time diff] 1.9 delta seconds Normal <7.1 [facility] Comment on above: Order Comment: Speci men Type: BLOOD SPECIMEN Ordering Facility: [facility] Address: [address] [place] [address] Performed By: #### 1 7791-5, 04452-8, 64212-4, 40898-9, 07892-6, 91898-4, 29906-9, 57681-5 #### [facility] CLIA [id number] [address] [place] [address] [place] dRVVT Coag (PPP) [Time] 31.2 s Low 32.0-45.7 [facility] Comment on above: Order Comment: Speci men Type: BLOOD SPECIMEN Ordering Facility: [facility] Address: [address] [place] [address] Performed By: #### 1 7791-5, 51272-9, 78996-0, 05013-9, 69716-3, 06608-6, 60397-8, 27095-3 #### [facility] CLIA [id number] [address] [place] [address] [place] dRVVT factor substitution immediately after 1:2 addition of normal plasma Coag (PPP) [Time] 32.6 seconds Normal 32.0-45.7 [facility] Comment on above: Order Comment: Speci men Type: BLOOD SPECIMEN Ordering Facility: [facility] Address: [address] [place] [address] Performed By: #### 1 7791-5, 89197-8, 30673-6, 24798-8, 03087-1, 83528-3, 80861-0, 70493-8 #### [facility] CLIA [id number] [address] [place] [address] [place] dRVVT W excess hexagonal phase phospholipid actual/normal Coag (PPP) [Relative time] 39.0 seconds Normal 34.2-47.9 [facility] Comment on above: Order Comment: Speci men Type: BLOOD SPECIMEN Ordering Facility: [facility] Address: [address] [place] [address] Performed By: #### 1 7791-5, 97485-3, 55742-0, 51461-4, 16569-9, 83420-2, 20574-2, 33551-9 #### [facility] CLIA [id number] [address] [place] [address] [place] dRVVT/dRVVT.excess phospholipid Coag (PPP) [Ratio] 1.04 Normal <1.32 [facility] Comment on above: Order Comment: Speci men Type: BLOOD SPECIMEN Ordering Facility: [facility] Address: [address] [place] [address] Performed By: #### 1 7791-5, 00060-0, 25793-0, 07123-9, 54819-7, 76406-2, 56513-9, 45204-5 #### [facility] CLIA [id number] [address] [place] [address] [place] PLATELET NEUT 0.1 Seconds Normal <1.9 [facility] Comment on above: Order Comment: Speci men Type: BLOOD SPECIMEN Ordering Facility: [facility] Address: [address] [place] [address] Result Comment: This test was developed, and its performance characteristics determined by the [facility] Department of Pathology and Laboratory Medicine. It has not been cleared or approved by the FDA. The [facility] Department of Pathology and Laboratory Medicine is regulated under CLIA as qualified to perform high-complexity testing. This test is used for clinical purposes. It should not be regarded as investigational or for research. Performed By: #### 1 7791-5, 47771-0, 68689-2, 16504-7, 00958-1, 04488-4, 98498-4, 86942-3 #### [facility] CLIA [id number] [address] [place] [address] [place] PT Coag (Bld) [Time] 13.3 s Normal 11.6-14.4 [facility] Comment on above: Order Comment: Speci men Type: BLOOD SPECIMEN Ordering Facility: [facility] Address: [address] [place] [address] Performed By: #### 1 7791-5, 86280-1, 43899-2, 49152-0, 86239-8, 01454-9, 33217-6, 66003-6 #### [facility] CLIA [id number] [address] [place] [address] [place] Thrombin time Coag (PPP) [Time] 17.2 seconds Normal <18.6 [facility] Comment on above: Order Comment: Speci men Type: BLOOD SPECIMEN Ordering Facility: [facility] Address: [address] [place] [address] Performed By: #### 1 7791-5, 80251-9, 66237-7, 52337-5, 05046-8, 42170-3, 33093-3, 66442-3 #### [facility] CLIA [id number] [address] [place], [place] [id number] [place] LUPUS PANEL INTERPon 025 Lupus anticoagulant (PPP) [Interp] Normal [facility] Comment on above: Order Comment: Speci men Type: BLOOD SPECIMEN Ordering Facility: [facility] Address: [address], [place] [id number] Result Comment: Nathanael pantoja - see comment below. SIGNIFICANT FINDINGS: - Lupus Anticoagulant: Negative - Short DRVVT Laboratory testing was performed to evaluate the presence of a lupus anticoagulant and antiphospholipid antibodies. Both the PT and APTT results are normal. The thrombin time and anti-Xa screen were normal. No heparin, anti-Xa or direct thrombin inhibitor drug effect is present. LUPUS ANTICOAGULANT STUDIES: There is no evidence for a lupus anticoagulant or other coagulation inhibitor at this time. A short DRVVT can be due to increased activation or lack of inactivation of coagulation factors within the common pathway. Recommend thrombophilia testing if clinically indicated. The criteria for the diagnosis of a Lupus Anticoagulant, as detailed by the Subcommittee on Lupus Anticoagulants and Anti-Phospholipid Antibodies of the Scientific and Standardization Committee of the International Society on Thrombosis and Haemostasis (ISTH), are the following: (1) A prolonged phospholipid-dependent clotting test (screening test); (2) Evidence for an inhibitor (1:1 mix of patient:normal plasma); (3) Evidence that the inhibitor is phospholipid dependent and (4) Exclusion of specific inhibitors (ie, fVIII inhibitors, direct thrombin inhibitors, or heparin). Thromb. Haemost. 74:1185 (1994). ANTIPHOSPHOLIPID ANTIBODY STUDIES: One or more of the Cardiolipin antibody titers were minimally elevated. These findings are of doubtful clinical significance. Both the IgG and IgM Beta-2 Glycoprotein I antibody titers were negative. Antiphospholipid syndrome (APS) is present if at least one clinical criteria and one laboratory criteria are met. The clinical criteria for APS include the presence of vascular thrombosis or morbidity. The laboratory criteria for APS include positive testing for one of the following on two or more occasions, at least 12 weeks apart: (1) lupus anticoagulant; (2) anticardiolipin IgG or IgM in medium or high titer (>20 GPL or >20 MPL); (3) anti-beta 2 glycoprotein I IgG or IgM antibody. J. Thromb Haemost 4:295 (2006). Performed By: #### 1 7791-5, 28161-2, 10711-4, 86959-9, 12087-4, 43980-6, 88970-3, 87207-9 #### [facility] CLIA [id number] [address] [place], [place] [id number] [place] Pathologist name Reviewed by Tata Randall MD Normal [facility] Comment on above: Order Comment: Speci men Type: BLOOD SPECIMEN Ordering Facility: [facility] Address: [address] [place] [address] Performed By: #### 1 7791-5, 41012-5, 86855-6, 95942-0, 27413-7, 38610-9, 49420-0, 92364-5 #### [facility] CLIA [id number] [address] [place] [address] [place] MAGNESIUMon 02-17-2025 Magnesium [Mass/Vol] 2.2 mg/dL 1.7 - 2 .3 mg/dL [facility] Magnesium SerPl-mCncon 02-17 Magnesium [Mass/Vol] 2.2 mg/dL Normal 1.7-2.3 [facility] Comment on above: Order Comment: Speci men Type: BLOOD SPECIMEN Ordering Facility: [facility] Address: [address] [place] [address] Performed By: #### 1 7791-5, 78458-4, 50847-3, 94392-5, 25854-4, 78744-0, 03949-3, 63132-8 #### [facility] CLIA [id number] [address] [place], [place] [id number] [place] Magnesium [Mass/Vol]on 02-17 Interpretation and review of laboratory results Normal [facility] No Panel Informationon 02-17 IMPRESSION: Marked facet arthropathy lower lumbar spine. Mild degenerative change bilateral sacroiliac joints. No findings of sacroiliitis. 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 Shiftman: PSCB Transcribe Date/Time: Feb 17 2025 9:39P Dictated by : MARIELLA DELANEY MD This examination was interpreted and the report reviewed and electronically signed by: MARIELLA DELANEY MD on Feb 17 2025 9:41PM [facility] DIVISION OF RADIOLOGY [facility] Radiology Study observation (narrative) [facility] PARVOVIRUS B19 IGG+Mon 02-17 PARVO B19 IGG, QUAL Positive Abnormal Negative [facility] Comment on above: Order Comment: Tapan soler Type: BLOOD SPECIMEN Ordering Facility: [facility] Address: [address] [place] [address] Result Comment: Parv ovirus B19 virus IgG antibody test is used as an aid in diagnosis of recent or past infection with Parvovirus B19 virus. Cannot exclude recent infection if the specimen collected 2-3 weeks after exposure to a known source. Clinical correlation is required. Parvovirus B19 virus IgG antibody level remains elevated for prolonged periods, if not for life. Results were obtained with the Biotrin Parvovirus B19 IgG Enzyme Immunoassay. Performed By: #### P ARV #### [facility] CLIA [id number] [address] [place] [address] STATES [place] [facility] PARVO B19 IGM, QUAL Negative Normal Negative [facility] Comment on above: Order Comment: Tapan soler Type: BLOOD SPECIMEN Ordering Facility: [facility] Address: [address] [place] [address] Result Comment: Parv ovirus B19 virus IgM antibody test is used as an aid in diagnosis of acute infection with Parvovirus B19 virus. Cannot exclude recent infection if the specimen collected 7-10 days after exposure to a known source. Parvovirus B19 virus IgM antibody level may remain elevated for a few months after an acute infection. Clinical correlation is required. Results were obtained with the Biotrin Parvovirus B19 IgM Enzyme Immunoassay. Performed By: #### P ARV #### [facility] CLIA [id number] [address] [place] [address] [place] Prot/Creat Uron 02-17-2025 Protein/Creatinine (U) [Mass ratio] mg/g High <0.15 [facility] Comment on above: Order Comment: Tapan soler Type: BLOOD SPECIMEN Ordering Facility: [facility] Address: [address] [place] [address] Result Comment: Adul t Proteinuria Categories: <0.15 mg/mg is considered normal to mildly increased 0.15 - 0.50 mg/mg is considered moderately increased >0.50 mg/mg is considered severely increased KDIGO. (2013). KDIGO 2012 Clinical Practice Guideline for the Evaluation and Management of Chronic Kidney Disease. Official Journal of the International Society of Nephrology, 3(1), 1-150. Performed By: #### 1 7791-5, 67107-0, 68258-5, 52020-1, 20535-8, 55218-9, 18685-3, 88536-1 #### [facility] CLIA [id number] [address] [place] [address] [place] Protein/Creatinine (U) [Mass ratio]on 02-17-2025 Creatinine (U) [Mass/Vol] 22.3 mg/dL Normal 20.0-300.0 [facility] Comment on above: Order Comment: Speci men Type: BLOOD SPECIMEN Ordering Facility: [facility] Address: [address] [place], [place] [address] Performed By: #### 1 7791-5, 85705-5, 94584-6, 07459-5, 21703-5, 57274-9, 32884-4, 97834-9 #### [facility] CLIA [id number] [address] [place] [address] [place] Protein (U) [Mass/Vol] mg/dL Normal 0-[address] [facility] Comment on above: Order Comment: Speci men Type: BLOOD SPECIMEN Ordering Facility: [facility] Address: [address] [place] [address] Performed By: #### 1 7791-5, 01337-7, 35924-9, 81085-2, 90669-3, 05270-3, 09803-5, 82154-0 #### [facility] CLIA [id number] [address] [place] [address] [place] RHEUMATOID FACTORon 02-18-20 25 Rheumatoid factor Qn 276 [IU]/mL High NINF [facility] Rheumatoid fact SerPl-aCncon 02-17-2025 Rheumatoid factor Qn 276 [IU]/mL High <16 [facility] Comment on above: Order Comment: Specnatalie soler Type: BLOOD SPECIMEN Ordering Facility: [facility] Address: [address] [place] [address] Performed By: #### 1 7791-5, 31401-0, 68075-2, 68261-2, 48037-5, 02818-7, 70706-5, 02350-3 #### [facility] CLIA [id number] [address] [place] [address] [place] Rheumatoid factor Qnon 02-17 Interpretation and review of laboratory results Abnormal [facility] Ribonucleoprotein extractabl e nuclear Ab Qn (S)on 02-17-2025 ANTI-OIL AND GAS DRAFTER QUAL Negative Normal Negative [facility] Comment on above: Order Comment: Tapan soler Type: BLOOD SPECIMEN Ordering Facility: [facility] Address: [address] [place] [address] Performed By: #### 1 7791-5, 62924-4, 18175-1, 92715-9, 46840-1, 79314-3, 76923-3, 52043-3 #### [facility] CLIA [id number] [address] [place] [address] [place] RIBOSOMAL OIL AND GAS DRAFTER QUAL Negative Normal Negative [facility] Comment on above: Order Comment: Tapan soler Type: BLOOD SPECIMEN Ordering Facility: [facility] Address: [address] [place] [address] Result Comment: Anti -Ribosomal RNA (Ribosomal P) antibody is used as an aid in diagnosis of systemic autoimmune diseases especially systemic lupus erythematosus and mixed connective tissue disease. Cross-reactivity with Anti-garcia antibody is not uncommon. Clinical correlation is required. Test Methodology: Multiplex flow immunoassay. Performed By: #### 1 7791-5, 91045-5, 48233-5, 86008-2, 97130-7, 38893-3, 05718-0, 60492-0 #### [facility] CLIA [id number] [address] [place] [address] [place] SCL-70 extractable nuclear I gG IA Qn (S)on 02-17-2025 SCLERODERMA AB QUAL Negative Normal Negative [facility] Comment on above: Order Comment: Speci men Type: BLOOD SPECIMEN Ordering Facility: [facility] Address: [address] [place] [address] Performed By: #### 1 7791-5, 75304-0, 65105-3, 26203-2, 71156-1, 39900-5, 63438-0, 88794-0 #### [facility] IA [id number] [address] [place] [address] [place] SCLERODERMA IGG AB <0.2 Normal <1.0 [facility] Comment on above: Order Comment: Speci men Type: BLOOD SPECIMEN Ordering Facility: [facility] Address: [address] [place] [address] Result Comment: Scl- 70/Scleroderma antibody test is used as an aid in diagnosis of systemic sclerosis especially the diffuse cutaneous form. A negative result cannot rule out systemic sclerosis. The final interpretation should consider clinical picture and other test results such as anti-centromere antibody. Test Methodology: Multiplex flow immunoassay. Performed By: #### 1 7791-5, 48719-4, 21238-7, 07726-9, 14855-4, 67900-8, 67804-4, 55167-7 #### [facility] IA [id number] [address] [place] [address] [place] Sjogrens syndrome-A extracta ble nuclear Ab Qn (S)on 02-17-2025 SSA ANTIBODY QUAL Negative Normal Negative [facility] Comment on above: Order Comment: Speci men Type: BLOOD SPECIMEN Ordering Facility: [facility] Address: [address] [place] [address] Performed By: #### 1 7791-5, 17456-6, 48114-2, 11690-8, 80346-0, 01246-9, 21649-1, 56604-1 #### [facility] CLIA [id number] [address] [place] [address] [place] Sjogrens syndrome-B extracta ble nuclear Ab Qn (S)on 02-17-2025 SSB ANTIBODY QUAL Negative Normal Negative [facility] Comment on above: Order Comment: Speci men Type: BLOOD SPECIMEN Ordering Facility: [facility] Address: [address] [place] [address] Performed By: #### 1 7791-5, 83075-2, 52500-7, 31963-8, 09842-9, 12235-3, 79066-2, 92537-3 #### [facility] CLIA [id number] [address] [place] [address] [place] Garcia extractable nuclear Ig G Qn (S)on 02-17-2025 SM ANTIBODY QUAL Negative Normal Negative [facility] Comment on above: Order Comment: Speci men Type: BLOOD SPECIMEN Ordering Facility: [facility] Address: [address] [place] [address] Result Comment: Anti -Sm (Garcai) antibody is used as an aid in diagnosis of systemic lupus erythematosus and its presence is associated with renal disease. A negative result cannot rule out systemic lupus erythematosus. Clinical correlation is required. Test Methodology: Multiplex flow immunoassay. Performed By: #### 1 7791-5, 67425-4, 03588-8, 97044-9, 33500-9, 33431-4, 24584-0, 62298-7 #### [facility] CLIA [id number] [address] [place], [place] [address] [place] THYROID STIMULATING HORMONEo n 02-17-2025 TSH Qn 5.270 m[IU]/L High [facility] Comment on above: If the patient is pr egnant, TSH reference range varies by gestational period: First Trimester (weeks 9-12): 0.180-2.990 mIU/L Second Trimester: 0.110-3.980 mIU/L Third Trimester: 0.480-4.710 mIU/L Ludwig Sousa et al. A Practical Approach for the Verifications and Determination of Site- and Trimester-Specific Reference Intervals for Thyroid Function tests in . Thyroid, 2019:29:3:412-420. Ronald Velarde et al. 2017 Guidelines of the [place] Thyroid Association for the Diagnosis and Management of Thyroid Disease during and the . Thyroid, 2017:27:3:315-389. TSH Qnon 02-17-2025 Interpretation and review of laboratory results Abnormal [facility] TSH SerPl-aCncon 02-17-2025 TSH Qn 5.270 m[IU]/L High 0.270-4.200 [facility] Comment on above: Order Comment: Speci men Type: BLOOD SPECIMEN Ordering Facility: [facility] Address: [address] [place] [address] Result Comment: If t he patient is , TSH reference range varies by gestational period: First Trimester (weeks 9-12): 0.180-2.990 mIU/L Second Trimester: 0.110-3.980 mIU/L Third Trimester: 0.480-4.710 mIU/L Ludwig Sousa et al. A Practical Approach for the Verifications and Determination of Site- and Trimester-Specific Reference Intervals for Thyroid Function tests in . Thyroid, 2019:29:3:412-420. Ronald Velarde et al. 2017 Guidelines of the [place] Thyroid Association for the Diagnosis and Management of Thyroid Disease during and the . Thyroid, 2017:27:3:315-389. Performed By: #### 1 7791-5, 81002-9, 70092-2, 45149-8, 51880-6, 90707-0, 26220-6, 00943-7 #### [facility] CLIA [id number] [address] [place] [address] [place] Urinalysis complete panel (U )on 02-17-2025 Bacteria uL 1396.2 uL High - [address] [facility] Bilirubin Ql (U) Negative Negative [facility] Clarity (Unsp spec) Clear [facility] Color (U) Yellow Yellow [facility] Epithelial cells LM.HPF (Urine sed) [#/Area] None Seen /HPF [facility] Glucose Test strip (U) [Mass/Vol] Negative Negative [facility] Hemoglobin Ql (U) Negative Negative [facility] Hyaline casts (Urine sed) [#/Area] 1-3 /LPF Abnormal 0 /LPF [facility] Interpretation and review of laboratory results Abnormal [facility] Ketones Ql (U) Negative Negative [facility] Leukocyte esterase Test strip Ql (U) Negative Negative [facility] Nitrite Ql (U) Negative Negative [facility] pH (U) 6.5 [pH] 5.0 - 8.0 [facility] Protein (U) [Mass/Vol] Negative Negative [facility] RBC LM.HPF (Urine sed) [#/Area] 0-2 /HPF 0-2 /HPF [facility] Specific gravity (U) [Rel density] 1.008 1.005 - 1.030 [facility] Urobilinogen Ql (U) 0.2 EU/dL 0.2-1.0 EU/dL [facility] WBC LM.HPF (Urine sed) [#/Area] 0-5 /HPF 0-5 /HPF [facility] This test was developed and its performance characteristics determined by [facility]'s [facility] [place] [facility] It has not been cleared or approved by the FDA. -[facility] is regulated under CLIA as qualified to perform high-complexity testing. This test is used for clinical purposes. It should not be regarded as investigational or for research. [facility] BACTERIA UL 1396.2 uL High Negative [facility] Comment on above: Order Comment: Speci men Type: BLOOD SPECIMEN Ordering Facility: [facility] Address: [address] [place] [address] Performed By: #### 1 7791-5, 05989-1, 66493-6, 53722-1, 64178-9, 11172-1, 63747-0, 49486-0 #### [facility] CLIA [id number] [address] [place] [address] [place] Bilirubin Ql (U) Negative Normal Negative [facility] Comment on above: Order Comment: Speci men Type: BLOOD SPECIMEN Ordering Facility: [facility] Address: [address] [place] [address] Performed By: #### 1 7791-5, 41279-4, 52786-2, 23267-6, 45443-7, 11621-9, 66770-4, 78322-5 #### [facility] CLIA [id number] [address] [place] [address] [place] Clarity (Unsp spec) Clear Normal Clear [facility] Comment on above: Order Comment: Speci men Type: BLOOD SPECIMEN Ordering Facility: [facility] Address: [address] [place] [address] Performed By: #### 1 7791-5, 79762-0, 39618-7, 38186-4, 15771-7, 19181-7, 17712-0, 05192-7 #### [facility] CLIA [id number] [address] [place] [address] [place] Color (U) Yellow Normal Yellow [facility] Comment on above: Order Comment: Speci men Type: BLOOD SPECIMEN Ordering Facility: [facility] Address: [address] [place] [address] Performed By: #### 1 7791-5, 05514-1, 23503-1, 14602-4, 79355-1, 58661-1, 49325-5, 99806-1 #### [facility] CLIA [id number] [address] [place] [address] [place] Epithelial cells LM.HPF (Urine sed) [#/Area] None Seen Normal [facility] Comment on above: Order Comment: Speci men Type: BLOOD SPECIMEN Ordering Facility: [facility] Address: [address] [place] [address] Performed By: #### 1 7791-5, 03030-5, 76050-1, 25695-8, 52394-8, 77755-0, 54266-8, 59663-9 #### [facility] CLIA [id number] [address] [place], [place] [id number] [place] Glucose Test strip (U) [Mass/Vol] Negative Normal Negative [facility] Comment on above: Order Comment: Speci men Type: BLOOD SPECIMEN Ordering Facility: [facility] Address: [address] [place] [address] Performed By: #### 1 7791-5, 21842-8, 08985-8, 63693-6, 36962-9, 96609-0, 59319-2, 56023-7 #### [facility] CLIA [id number] [address] [place] [address] [place] Hemoglobin Ql (U) Negative Normal Negative [facility] Comment on above: Order Comment: Speci men Type: BLOOD SPECIMEN Ordering Facility: [facility] Address: [address] [place] [address] Performed By: #### 1 7791-5, 72548-9, 22052-4, 24134-0, 51604-7, 76171-1, 66476-9, 75920-3 #### [facility] CLIA [id number] [address] [place] [address] [place] Hyaline casts (Urine sed) [#/Area] 1-3 /LPF Abnormal 0 /LPF [facility] Comment on above: Order Comment: Speci men Type: BLOOD SPECIMEN Ordering Facility: [facility] Address: [address] [place] [address] Performed By: #### 1 7791-5, 90916-7, 08724-9, 82853-6, 72743-1, 34773-6, 49275-0, 80336-3 #### [facility] CLIA [id number] [address] [place] [address] [place] Ketones Ql (U) Negative Normal Negative [facility] Comment on above: Order Comment: Speci men Type: BLOOD SPECIMEN Ordering Facility: [facility] Address: [address] [place] [address] Performed By: #### 1 7791-5, 81620-2, 01476-6, 44049-2, 33559-3, 36896-7, 91807-5, 27665-8 #### [facility] CLIA [id number] [address] [place] [address] [place] Leukocyte esterase Test strip Ql (U) Negative Normal Negative [facility] Comment on above: Order Comment: Speci men Type: BLOOD SPECIMEN Ordering Facility: [facility] Address: [address] [place] [address] Performed By: #### 1 7791-5, 49959-7, 07418-8, 13513-4, 46985-3, 56687-6, 38020-5, 82341-8 #### [facility] CLIA [id number] [address] [place] [address] [place] Nitrite Ql (U) Negative Normal Negative [facility] Comment on above: Order Comment: Speci men Type: BLOOD SPECIMEN Ordering Facility: [facility] Address: [address] [place] [address] Performed By: #### 1 7791-5, 21358-5, 08420-6, 37310-0, 30138-4, 02125-8, 88541-0, 24767-2 #### [facility] CLIA [id number] [address] [place] [address] [place] pH (U) 6.5 [pH] Normal 5.0-8.0 [facility] Comment on above: Order Comment: Speci men Type: BLOOD SPECIMEN Ordering Facility: [facility] Address: [address] [place] [address] Performed By: #### 1 7791-5, 74124-3, 46717-3, 08841-6, 80550-5, 37255-4, 35754-7, 41355-0 #### [facility] CLIA [id number] [address] [place] [address] [place] Protein (U) [Mass/Vol] Negative Normal Negative [facility] Comment on above: Order Comment: Speci men Type: BLOOD SPECIMEN Ordering Facility: [facility] Address: [address] [place] [address] Performed By: #### 1 7791-5, 83835-5, 47879-1, 87974-3, 66782-1, 98506-9, 52280-0, 81452-3 #### [facility] CLIA [id number] [address] [place] [address] [place] RBC LM.HPF (Urine sed) [#/Area] 0-2 /HPF Normal 0-2 /HPF [facility] Comment on above: Order Comment: Speci men Type: BLOOD SPECIMEN Ordering Facility: [facility] Address: [address] [place] [address] Performed By: #### 1 7791-5, 65120-4, 20593-3, 59930-6, 42543-3, 37063-4, 55953-1, 91860-4 #### [facility] CLIA [id number] [address] [place] [address] [place] Specific gravity (U) [Rel density] 1.008 Normal 1.005-1.030 [facility] Comment on above: Order Comment: Speci men Type: BLOOD SPECIMEN Ordering Facility: [facility] Address: [address] [place] [address] Performed By: #### 1 7791-5, 21426-9, 61974-6, 75424-8, 24049-4, 43628-6, 43682-7, 13350-5 #### [facility] CLIA [id number] [address] [place] [address] [place] Urobilinogen Ql (U) 0.2 EU/dL Normal 0.2-1.0 EU/dL [facility] Comment on above: Order Comment: Speci men Type: BLOOD SPECIMEN Ordering Facility: [facility] Address: [address] [place] [address] Performed By: #### 1 7791-5, 23582-4, 56749-3, 64921-2, 46613-7, 06940-9, 14694-1, 78204-7 #### [facility] CLIA [id number] [address] [place] [address] [place] WBC LM.HPF (Urine sed) [#/Area] 0-5 /HPF Normal 0-5 /HPF [facility] Comment on above: Order Comment: Speci men Type: BLOOD SPECIMEN Ordering Facility: [facility] Address: [address] [place] [address] Performed By: #### 1 7791-5, 92686-0, 57267-1, 15804-6, 78838-2, 56957-0, 92406-0, 20326-2 #### [facility] CLIA [id number] [address] [place] [address] [place] Vit B12 SerPl-mCncon 025 Cobalamin (Vitamin B12) [Mass/Vol] 1306 pg/mL High 232-1245 [facility] Comment on above: Order Comment: Speci men Type: BLOOD SPECIMEN Ordering Facility: [facility] Address: [address] [place] [address] Performed By: #### 1 7791-5, 24886-3, 81304-7, 61751-7, 24872-4, 21197-9, 77433-8, 99908-8 #### [facility] CLIA [id number] [address] [place] [address] [place] XR CERVICAL 2V FLEX/EXTon XR CERVICAL 2V FLEX/EXT * * *Final Report* * * DATE OF EXAM: Feb 17 2025 2:41PM AOX 5588 - XR CERVICAL 2V FLEX/EXT / PROCEDURE REASON: Neck stiffness * * * * Physician Interpretation * * * * CERVICAL SPINE X-RAYS HISTORY: . Neck stiffness TECHNIQUE: 2 views of the cervical spine with flexion-extension views. COMPARISON: None RESULT: Counting reference: Craniocervical junction. Vertebral height and alignment is maintained with flexion and extension. No acute fracture or subluxation is identified. The disc spaces are maintained. There is no prevertebral soft tissue swelling. IMPRESSION: Unremarkable cervical spine Shiftman: [employer] Transcribe Date/Time: Feb 17 2025 9:17P Dictated by : MARIELLA DELANEY MD This examination was interpreted and the report reviewed and electronically signed by: MARIELLA DELANEY MD on Feb 17 2025 9:17PM EST [id number] Normal [facility] XR Cervical spine 2 or 3 vie ws and (Views W flexion and W extension)on 02-17-2025 IMPRESSION: Unremarkable cervical spine Shiftman: [employer] Transcribe Date/Time: Feb 17 2025 9:17P Dictated by : MARIELLA DELANEY MD This examination was interpreted and the report reviewed and electronically signed by: MARIELLA DELANEY MD on Feb 17 2025 9:17PM EST DIVISION OF RADIOLOGY * * *Final Report* * * DATE OF EXAM: Feb 17 2025 2:41PM AOX 5588 - XR CERVICAL 2V FLEX/EXT / PROCEDURE REASON: Neck stiffness * * * * Physician Interpretation * * * * CERVICAL SPINE X-RAYS HISTORY: . Neck stiffness TECHNIQUE: 2 views of the cervical spine with flexion-extension views. COMPARISON: None RESULT: Counting reference: Craniocervical junction. Vertebral height and alignment is maintained with flexion and extension. No acute fracture or subluxation is identified. The disc spaces are maintained. There is no prevertebral soft tissue swelling. DIVISION OF RADIOLOGY Provider, [facility] - 02/17/2025 * * *Final Report* * * DATE OF EXAM: Feb 17 2025 2:41PM AOX 5588 - XR CERVICAL 2V FLEX/EXT / PROCEDURE REASON: Neck stiffness * * * * Physician Interpretation * * * * CERVICAL SPINE X-RAYS HISTORY: . Neck stiffness TECHNIQUE: 2 views of the cervical spine with flexion-extension views. COMPARISON: None RESULT: Counting reference: Craniocervical junction. Vertebral height and alignment is maintained with flexion and extension. No acute fracture or subluxation is identified. The disc spaces are maintained. There is no prevertebral soft tissue swelling. IMPRESSION IMPRESSION: Unremarkable cervical spine Shiftman: [employer] Transcribe Date/Time: Feb 17 2025 9:17P Dictated by : MARIELLA DELANEY MD This examination was interpreted and the report reviewed and electronically signed by: MARIELLA DELANEY MD on Feb 17 2025 9:17PM EST [facility] XR FOOT 3V AP/LAT/OBL BILon 02-17-2025 XR FOOT 3V AP/LAT/OBL KAELYN * * *Final Report* * * DATE OF EXAM: Feb 17 2025 2:41PM AOX 5555 - XR FOOT 3V AP/LAT/OBL KAELYN / PROCEDURE REASON: multiple diagnoses * * * * Physician Interpretation * * * * X-RAYS BILATERAL FEET HISTORY: . Elevated rheumatoid factor Pain of both shoulder joints Pain of both shoulder joints Foot pain, bilateral TECHNIQUE: 3 views each COMPARISON: None RESULT: No fracture or dislocation is identified. Joint spaces are maintained. No erosions. There is a bipartite tibial hallux sesamoid on the right. IMPRESSION: Unremarkable bilateral feet. No erosions identified. [facility] Transcribe Date/Time: Feb 17 2025 9:22P Dictated by : MARIELLA DELANEY MD This examination was interpreted and the report reviewed and electronically signed by: MARIELLA DELANEY MD on Feb 17 2025 9:23PM EST [id number] Normal [facility] XR Foot - bilateral AP and L ateral and obliqueon 02-17-2025 IMPRESSION: Unremarkable bilateral feet. No erosions identified. Shiftman: [facility] Transcribe Date/Time: Feb 17 2025 9:22P Dictated by : MARIELLA DELANEY MD This examination was interpreted and the report reviewed and electronically signed by: MARIELLA DELANEY MD on Feb 17 2025 9:23PM EST DIVISION OF RADIOLOGY * * *Final Report* * * DATE OF EXAM: Feb 17 2025 2:41PM AOX 5555 - XR FOOT 3V AP/LAT/OBL KAELYN / PROCEDURE REASON: multiple diagnoses * * * * Physician Interpretation * * * * X-RAYS BILATERAL FEET HISTORY: . Elevated rheumatoid factor Pain of both shoulder joints Pain of both shoulder joints Foot pain, bilateral TECHNIQUE: 3 views each COMPARISON: None RESULT: No fracture or dislocation is identified. Joint spaces are maintained. No erosions. There is a bipartite tibial hallux sesamoid on the right. DIVISION OF RADIOLOGY Provider, [facility] - 02/17/2025 * * *Final Report* * * DATE OF EXAM: Feb 17 2025 2:41PM AOX 5555 - XR FOOT 3V AP/LAT/OBL KAELYN / PROCEDURE REASON: multiple diagnoses * * * * Physician Interpretation * * * * X-RAYS BILATERAL FEET HISTORY: . Elevated rheumatoid factor Pain of both shoulder joints Pain of both shoulder joints Foot pain, bilateral TECHNIQUE: 3 views each COMPARISON: None RESULT: No fracture or dislocation is identified. Joint spaces are maintained. No erosions. There is a bipartite tibial hallux sesamoid on the right. IMPRESSION IMPRESSION: Unremarkable bilateral feet. No erosions identified. Shiftman: [employer] Transcribe Date/Time: Feb 17 2025 9:22P Dictated by : MARIELLA DELANEY MD This examination was interpreted and the report reviewed and electronically signed by: MARIELLA DELANEY MD on Feb 17 2025 9:23PM [facility] XR HAND 3V PA/LAT/OBL BILon 02-17-2025 XR HAND 3V PA/LAT/OBL KAELYN * * *Final Report* * * DATE OF EXAM: Feb 17 2025 2:41PM AOX 5556 - XR HAND 3V PA/LAT/OBL KAELYN / PROCEDURE REASON: multiple diagnoses * * * * Physician Interpretation * * * * X-RAYS BILATERAL HANDS HISTORY: . Elevated rheumatoid factor Pain of both shoulder joints Pain of both shoulder joints Foot pain, bilateral TECHNIQUE: 3 views each COMPARISON: None RESULT: Mild osteoarthritis at the 1st CMC joints bilaterally. Joint spaces are otherwise maintained. No fracture or dislocation. No erosions. No chondrocalcinosis. 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 No erosions identified. 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 No erosions identified. Shiftman: [employer] Transcribe Date/Time: Feb 17 2025 9:31P Dictated by : MARIELLA DELANEY MD This examination was interpreted and the report reviewed and electronically signed by: MARIELLA DELANEY MD on Feb 17 2025 9:31PM EST DIVISION OF RADIOLOGY * * *Final Report* * * DATE OF EXAM: Feb 17 2025 2:41PM AOX 5556 - XR HAND 3V PA/LAT/OBL KAELYN / PROCEDURE REASON: multiple diagnoses * * * * Physician Interpretation * * * * X-RAYS BILATERAL HANDS HISTORY: . Elevated rheumatoid factor Pain of both shoulder joints Pain of both shoulder joints Foot pain, bilateral TECHNIQUE: 3 views each COMPARISON: None RESULT: Mild osteoarthritis at the 1st CMC joints bilaterally. Joint spaces are otherwise maintained. No fracture or dislocation. No erosions. No chondrocalcinosis. DIVISION OF RADIOLOGY Provider, [facility] - 02/17/2025 * * *Final Report* * * DATE OF EXAM: Feb 17 2025 2:41PM AOX 5556 - XR HAND 3V PA/LAT/OBL KAELYN / PROCEDURE REASON: multiple diagnoses * * * * Physician Interpretation * * * * X-RAYS BILATERAL HANDS HISTORY: . Elevated rheumatoid factor Pain of both shoulder joints Pain of both shoulder joints Foot pain, bilateral TECHNIQUE: 3 views each COMPARISON: None RESULT: Mild osteoarthritis at the 1st CMC joints bilaterally. Joint spaces are otherwise maintained. No fracture or dislocation. No erosions. No chondrocalcinosis. 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 No erosions identified. Shiftman: [employer] Transcribe Date/Time: Feb 17 2025 9:31P Dictated by : MARIELLA DELANEY MD This examination was interpreted and the report reviewed and electronically signed by: MARIELLA DELANEY MD on Feb 17 2025 9:31PM EST [facility] XR LUMBAR 2V AP/LATon 2024 XR LUMBAR 2V AP/LAT * * *Final Report* * * DATE OF EXAM: Feb 17 2025 2:41PM AOX 5229 - XR LUMBAR 2V AP/LAT / PROCEDURE REASON: multiple diagnoses * * * * Physician Interpretation * * * * X-RAYS LUMBAR SPINE X-RAY SACROILIAC JOINTS HISTORY: . Elevated rheumatoid factor Plantar fasciitis Chronic midline low back pain without sciatica Chronic midline low back pain without sciatica TECHNIQUE: 2 views lumbar spine and 2 views sacroiliac joints COMPARISON: None RESULT: Counting reference: Lumbosacral junction. For the purposes of this report, L5-S1 is considered the last lumbar type disc space and L4-5 is considered the level of the iliac crest. 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 Marked facet arthropathy lower lumbar spine. Mild disc space narrowing L4-L5. No fracture or compression deformity. No spondylolisthesis. Mild degenerative change bilateral sacroiliac joints. No findings of sacroiliitis. Intrauterine device within the pelvis. IMPRESSION: Marked facet arthropathy lower lumbar spine. Mild degenerative change bilateral sacroiliac joints. No findings of sacroiliitis. 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 Shiftman: [employer] Transcribe Date/Time: Feb 17 2025 9:39P Dictated by : MARIELLA DELANEY MD This examination was interpreted and the report reviewed and electronically signed by: MARIELLA DELANEY MD on Feb 17 2025 9:41PM EST [id number] Normal [facility] XR Lumbar spine AP and Later naveen 02-17-2025 * * *Final Report* * * DATE OF EXAM: Feb 17 2025 2:41PM AOX 5229 - XR LUMBAR 2V AP/LAT / PROCEDURE REASON: multiple diagnoses * * * * Physician Interpretation * * * * X-RAYS LUMBAR SPINE X-RAY SACROILIAC JOINTS HISTORY: . Elevated rheumatoid factor Plantar fasciitis Chronic midline low back pain without sciatica Chronic midline low back pain without sciatica TECHNIQUE: 2 views lumbar spine and 2 views sacroiliac joints COMPARISON: None RESULT: Counting reference: Lumbosacral junction. For the purposes of this report, L5-S1 is considered the last lumbar type disc space and L4-5 is considered the level of the iliac crest. 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 Marked facet arthropathy lower lumbar spine. Mild disc space narrowing L4-L5. No fracture or compression deformity. No spondylolisthesis. Mild degenerative change bilateral sacroiliac joints. No findings of sacroiliitis. Intrauterine device within the pelvis. DIVISION OF RADIOLOGY Provider, [facility] - 02/17/2025 * * *Final Report* * * DATE OF EXAM: Feb 17 2025 2:41PM AOX 5229 - XR LUMBAR 2V AP/LAT / PROCEDURE REASON: multiple diagnoses * * * * Physician Interpretation * * * * X-RAYS LUMBAR SPINE X-RAY SACROILIAC JOINTS HISTORY: . Elevated rheumatoid factor Plantar fasciitis Chronic midline low back pain without sciatica Chronic midline low back pain without sciatica TECHNIQUE: 2 views lumbar spine and 2 views sacroiliac joints COMPARISON: None RESULT: Counting reference: Lumbosacral junction. For the purposes of this report, L5-S1 is considered the last lumbar type disc space and L4-5 is considered the level of the iliac crest. 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 Marked facet arthropathy lower lumbar spine. Mild disc space narrowing L4-L5. No fracture or compression deformity. No spondylolisthesis. Mild degenerative change bilateral sacroiliac joints. No findings of sacroiliitis. Intrauterine device within the pelvis. IMPRESSION IMPRESSION: Marked facet arthropathy lower lumbar spine. Mild degenerative change bilateral sacroiliac joints. No findings of sacroiliitis. 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 Shiftman: [employer] Transcribe Date/Time: Feb 17 2025 9:39P Dictated by : MARIELLA DELANEY MD This examination was interpreted and the report reviewed and electronically signed by: MARIELLA DELANEY MD on Feb 17 2025 9:41PM EST [facility] XR SHLDR >/=3V AP/JESSY AP/OTH R RTon 02-17-2025 XR SHLDR >/=3V AP/JESSY AP/OTHR RT * * *Final Report* * * DATE OF EXAM: Feb 17 2025 2:41PM AOX 5253 - XR SHLDR >/=3V AP/JESSY AP/OTHR RT / PROCEDURE REASON: multiple diagnoses * * * * Physician Interpretation * * * * X-RAYS RIGHT SHOULDER HISTORY: . Elevated rheumatoid factor Pain of both shoulder joints Pain of both shoulder joints Foot pain, bilateral TECHNIQUE: 2 views of the right shoulder. COMPARISON: None RESULT: No fracture or dislocation is identified. The acromiohumeral interval and glenohumeral joint spaces are maintained. The acromioclavicular joint is maintained. IMPRESSION: Normal right shoulder Shiftman: [facility] Transcribe Date/Time: Feb 17 2025 9:51P Dictated by : MARIELLA DELANEY MD This examination was interpreted and the report reviewed and electronically signed by: MARIELLA DEALNEY MD on Feb 17 2025 9:51PM EST [id number] Normal [facility] XR SI JTS 2V AP PELV/FERGUSO Non 02-17-2025 XR SI JTS 2V AP PELV/CARLISLE * * *Final Report* * * DATE OF EXAM: Feb 17 2025 2:41PM AOX 5245 - XR SI JTS 2V AP PELV/CARLISLE / PROCEDURE REASON: multiple diagnoses * * * * Physician Interpretation * * * * X-RAYS LUMBAR SPINE X-RAY SACROILIAC JOINTS HISTORY: . Elevated rheumatoid factor Plantar fasciitis Chronic midline low back pain without sciatica Chronic midline low back pain without sciatica TECHNIQUE: 2 views lumbar spine and 2 views sacroiliac joints COMPARISON: None RESULT: Counting reference: Lumbosacral junction. For the purposes of this report, L5-S1 is considered the last lumbar type disc space and L4-5 is considered the level of the iliac crest. 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 Marked facet arthropathy lower lumbar spine. Mild disc space narrowing L4-L5. No fracture or compression deformity. No spondylolisthesis. Mild degenerative change bilateral sacroiliac joints. No findings of sacroiliitis. Intrauterine device within the pelvis. IMPRESSION: Marked facet arthropathy lower lumbar spine. Mild degenerative change bilateral sacroiliac joints. No findings of sacroiliitis. 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 Shiftman: [facility] Transcribe Date/Time: Feb 17 2025 9:39P Dictated by : MARIELLA DELANEY MD This examination was interpreted and the report reviewed and electronically signed by: MARIELLA DLEANEY MD on Feb 17 2025 9:41PM EST [id number] Normal [facility] XR Sacroiliac Joint Viewson 02-17-2025 * * *Final Report* * * DATE OF EXAM: Feb 17 2025 2:41PM AOX 5245 - XR SI JTS 2V AP PELV/CARLISLE / PROCEDURE REASON: multiple diagnoses * * * * Physician Interpretation * * * * X-RAYS LUMBAR SPINE X-RAY SACROILIAC JOINTS HISTORY: . Elevated rheumatoid factor Plantar fasciitis Chronic midline low back pain without sciatica Chronic midline low back pain without sciatica TECHNIQUE: 2 views lumbar spine and 2 views sacroiliac joints COMPARISON: None RESULT: Counting reference: Lumbosacral junction. For the purposes of this report, L5-S1 is considered the last lumbar type disc space and L4-5 is considered the level of the iliac crest. 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 Marked facet arthropathy lower lumbar spine. Mild disc space narrowing L4-L5. No fracture or compression deformity. No spondylolisthesis. Mild degenerative change bilateral sacroiliac joints. No findings of sacroiliitis. Intrauterine device within the pelvis. DIVISION OF RADIOLOGY Provider, [facility] - 02/17/2025 * * *Final Report* * * DATE OF EXAM: Feb 17 2025 2:41PM AOX 5245 - XR SI JTS 2V AP PELV/CARLISLE / PROCEDURE REASON: multiple diagnoses * * * * Physician Interpretation * * * * X-RAYS LUMBAR SPINE X-RAY SACROILIAC JOINTS HISTORY: . Elevated rheumatoid factor Plantar fasciitis Chronic midline low back pain without sciatica Chronic midline low back pain without sciatica TECHNIQUE: 2 views lumbar spine and 2 views sacroiliac joints COMPARISON: None RESULT: Counting reference: Lumbosacral junction. For the purposes of this report, L5-S1 is considered the last lumbar type disc space and L4-5 is considered the level of the iliac crest. 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 Marked facet arthropathy lower lumbar spine. Mild disc space narrowing L4-L5. No fracture or compression deformity. No spondylolisthesis. Mild degenerative change bilateral sacroiliac joints. No findings of sacroiliitis. Intrauterine device within the pelvis. IMPRESSION IMPRESSION: Marked facet arthropathy lower lumbar spine. Mild degenerative change bilateral sacroiliac joints. No findings of sacroiliitis. 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 Shiftman: [facility] Transcribe Date/Time: Feb 17 2025 9:39P Dictated by : MARIELLA DELANEY MD This examination was interpreted and the report reviewed and electronically signed by: MARIELLA DELANEY MD on Feb 17 2025 9:41PM EST [facility] XR Shoulder - right 3 Viewso n 02-17-2025 IMPRESSION: Normal right shoulder Shiftman: [facility] Transcribe Date/Time: Feb 17 2025 9:51P Dictated by : MARIELLA DELANEY MD This examination was interpreted and the report reviewed and electronically signed by: MARIELLA DELANEY MD on Feb 17 2025 9:51PM [facility] DIVISION OF RADIOLOGY * * *Final Report* * * DATE OF EXAM: Feb 17 2025 2:41PM AOX 5253 - XR SHLDR >/=3V AP/JESSY AP/OTHR RT / PROCEDURE REASON: multiple diagnoses * * * * Physician Interpretation * * * * X-RAYS RIGHT SHOULDER HISTORY: . Elevated rheumatoid factor Pain of both shoulder joints Pain of both shoulder joints Foot pain, bilateral TECHNIQUE: 2 views of the right shoulder. COMPARISON: None RESULT: No fracture or dislocation is identified. The acromiohumeral interval and glenohumeral joint spaces are maintained. The acromioclavicular joint is maintained. DIVISION OF RADIOLOGY Provider, Ceci Cox - 02/17/2025 * * *Final Report* * * DATE OF EXAM: Feb 17 2025 2:41PM AOX 5253 - XR SHLDR >/=3V AP/JESSY AP/OTHR RT / PROCEDURE REASON: multiple diagnoses * * * * Physician Interpretation * * * * X-RAYS RIGHT SHOULDER HISTORY: . Elevated rheumatoid factor Pain of both shoulder joints Pain of both shoulder joints Foot pain, bilateral TECHNIQUE: 2 views of the right shoulder. COMPARISON: None RESULT: No fracture or dislocation is identified. The acromiohumeral interval and glenohumeral joint spaces are maintained. The acromioclavicular joint is maintained. IMPRESSION IMPRESSION: Normal right shoulder [facility] Trans[facility] Date/Time: Feb 17 2025 9:51P Dictated by : MARIELLA DELANEY MD This examination was interpreted and the report reviewed and electronically signed by: MARIELLA DELANEY MD on Feb 17 2025 9:51PM EST [facility] XR Shoulder - right 3 ViewsO rdered By: Cc Provider on 02-17-2025 [facility] cCP IgG SerPl-aCncon 025 Cyclic citrullinated peptide IgG Qn >250 High <20 [facility] Comment on above: Order Comment: Speci men Type: BLOOD SPECIMEN Ordering Facility: [facility] Address: [address] [place] [address] Performed By: #### 1 7791-5, 75996-6, 52286-2, 17933-8, 00883-6, 94845-5, 57393-3, 74376-5 #### [facility] CLIA [id number] [address] [place] [address] [place] CBC with Diffon 05-17-2017 Abs. Basophil 0.00 k/uL Normal 0.0-0.2 [facility] Comment on above: Result Comment: Perf ormed at [facility] [address] [place] [address] Performed By: #### C DP, CP ####[facility] [place] [address] Abs.Neutrophil (Seg) 5.00 k/uL Normal 2.5-7.0 [facility] Comment on above: Performed By: #### C DP, CP ####[place] [address] [place] [address] Auto Diff Performed YES Normal [facility] Comment on above: Performed By: #### C DP, CP ####[place] [address] [place] [address] Basophils/100 WBC Auto (Bld) 0 % Normal [facility] Comment on above: Performed By: #### C DP, CP ####[place] [address] [place] [address] Eosinophils 0.10 10*3/uL Normal 0.0-0.4 [facility] Comment on above: Performed By: #### C DP, CP ####[place] [address] [place] [address] Eosinophils/100 leukocytes 1 % Normal [facility] Comment on above: Performed By: #### C DP, CP ####[place] [address] [place] [address] Erythrocyte distribution width Auto Ratio (RBC) 14.2 % Normal 12.1-15.2 [facility] Comment on above: Performed By: #### C DP, CP ####[place] [address] [place] [address] Erythrocytes (RBC) 4.59 10*6/uL Normal 4.0-5.2 [facility] Comment on above: Performed By: #### C DP, CP ####[place] [address] [place] [address] Hematocrit (HCT) 38.6 % Normal 36-46 [facility] Comment on above: Performed By: #### C DP, CP ####[facility] [place] [address] Hemoglobin mass conc (Bld) 13.0 g/dL Normal 12.0-16.0 [facility] Comment on above: Performed By: #### C DP, CP ####[facility] [address] Lymphocytes 2.00 10*3/uL Normal 1.0-4.8 [facility] Comment on above: Performed By: #### C DP, CP ####[address] [place] [address] Lymphocytes/100 leukocytes 27 % Normal [facility] Comment on above: Performed By: #### C DP, CP ####[facility] [place] [address] MCH 28.4 pg Normal 26-34 [facility] Comment on above: Performed By: #### C DP, CP ####[facility] [place] [address] MCHC mass conc (RBC) 33.7 g/dL Normal 31-37 [facility] Comment on above: Performed By: #### C DP, CP ####[facility] [place] [address] MCV 84.1 fL Normal 80-100 [facility] Comment on above: Performed By: #### C DP, CP ####[facility] [place] [address] Monocytes 0.50 10*3/uL Normal 0.0-1.0 [facility] Comment on above: Performed By: #### C DP, CP ####[facility] [place] [address] Monocytes/100 leukocytes 6 % Normal [facility] Comment on above: Performed By: #### C DP, CP ####[facility] [place] [address] Neutrophil (Seg) 66 % Normal [facility] Comment on above: Performed By: #### C DP, CP ####[facility] [place] [address] Platelets 314 10*3/uL Normal 140-450 [facility] Comment on above: Performed By: #### C DP, CP ####[facility] [place] [address] WBC (Leukocytes) 7.6 10*3/uL Normal 3.5-11.0 [facility] Comment on above: Performed By: #### C DP, CP ####[facility] [place] [address] Erythrocyte morphology NOT REPORTED Normal [facility] Comment on above: Performed By: #### C DP, CP ####[facility] [place] [address] Granulocytes/100 WBC (Bld) NOT REPORTED Normal 0.00-0.30 [facility] Comment on above: Performed By: #### C DP, CP ####[facility] [place] [address] Immature granulocytes #/vol (Bld) NOT REPORTED Normal 0 [facility] Comment on above: Performed By: #### C DP, CP ####[facility] [place] [address] Platelet mean volume (PMV) NOT REPORTED Normal 6.0-12.0 [facility] Comment on above: Performed By: #### C DP, CP ####[facility] [place] [address] Platelets NOT REPORTED Normal [facility] Comment on above: Performed By: #### C DP, CP ####[facility] [place] [address] WBC Morphology NOT REPORTED Normal [facility] Comment on above: Performed By: #### C DP, CP ####[facility] [facility] [place] [address] Comp Metabolic Profon 2016 (cont.) Normal [facility] Comment on above: Result Comment: Aver age GFR for 30-39 years old: 107 mL/min/1.73sq mChronic Kidney Disease: <60 mL/min/1.73sq mKidney failure: <15 mL/min/1.73sq meGFR calculated using average adult body mass. Additional eGFR calculator available at:http://www.Next Points/multiple_crcl_2012.htmPerformed at [facility] [address] [facility] [place] [address] Performed By: #### C DP, CP ####[facility] [facility] [place] [address] Alanine aminotransferase (ALT) 18 U/L Normal 5-33 [facility] Comment on above: Performed By: #### C DP, CP ####[facility] [facility] [place] [address] Albumin 4.2 g/dL Normal 3.5-5.2 [facility] Comment on above: Performed By: #### C DP, CP ####[facility] [facility] [place] [address] Alkaline Phos 60 U/L Normal 35-104 [facility] Comment on above: Performed By: #### C DP, CP ####[facility] [facility] [place] [address] Anion gap 14 mmol/L Normal 9-17 [facility] Comment on above: Performed By: #### C DP, CP ####[facility] [place] [address] Aspartate aminotransferase (AST) 16 U/L Normal <32 [facility] Comment on above: Performed By: #### C DP, CP ####[place] [address] [place] [address] Bilirubin Ql (U) 0.39 mg/dL Normal 0.3-1.2 [facility] Comment on above: Performed By: #### C DP, CP ####[place] [address] [facility] [place] [address] BUN/CRE Ratio 30 High 9-20 [facility] Comment on above: Performed By: #### C DP, CP ####[place] [address] [place] [address] Calcium 9.2 mg/dL Normal 8.6-10.4 [facility] Comment on above: Performed By: #### C DP, CP ####[address] [place] [address] Chloride 102 mmol/L Normal 98-107 [facility] Comment on above: Performed By: #### C DP, CP ####[place] [address] [facility] [place] [address] CO2 22 mmol/L Normal 20-31 [facility] Comment on above: Performed By: #### C DP, CP ####[place] [address] [facility] [place] [address] Creatinine 0.54 mg/dL Normal 0.50-0.90 [facility] Comment on above: Performed By: #### C DP, CP ####[address] [place] [address] eGFR (non-black) mL/min/{1.73_m2} Normal >[address] [facility] Comment on above: Performed By: #### C DP, CP ####[facility] [place] [address] Glucose mass conc 98 mg/dL Normal 70-99 [facility] Comment on above: Performed By: #### C DP, CP ####[facility] [place] [address] Potassium molar conc 3.8 mmol/L Normal 3.7-5.3 [facility] Comment on above: Performed By: #### C DP, CP ####[facility] [place] [address] Protein 7.1 g/dL Normal 6.4-8.3 [facility] Comment on above: Performed By: #### C DP, CP ####[facility] [place] [address] Sodium 138 mmol/L Normal 135-144 [facility] Comment on above: Performed By: #### C DP, CP ####[facility] [place] [address] Urea nitrogen 16 mg/dL Normal 6-20 [facility] Comment on above: Performed By: #### C DP, CP ####[facility] [place] [address] Albumin/Globulin Ratio NOT REPORTED Normal 1.0-2.5 [facility] Comment on above: Performed By: #### C DP, CP ####[facility] [place] [address] Staging: NOT REPORTED Normal [facility] Comment on above: Performed By: #### C DP, CP ####[facility] [place] [address] ED Provider Noteon 7 HIM IP Note OR Test Borer Normal [facility] HCG, ,Urineon 05-17 HCG.beta subunit ( test) Ql (U) Negative Normal NEG [facility] Comment on above: Result Comment: Perf ormed at [facility] [address] [facility] [place] [id number] Performed By: #### U HCG, UA, UMICAO ####[place] [address] [place] [address] Urinalysis, Routineon 2016 Acetaminophen mass conc Negative Normal NEG [facility] Comment on above: Performed By: #### U HCG, UA, UMICAO ####[address] [id number] Bilirubin (direct) Negative Normal NEG [facility] Comment on above: Performed By: #### U HCG, UA, UMICAO ####[place] [address] [facility] [id number] Comment Normal [facility] Comment on above: Result Comment: Perf ormed at [facility] [address] [place] [address] Performed By: #### U HCG, UA, UMICAO ####[place] [address] [facility] [id number] Hemoglobin mass conc (Bld) TRACE Abnormal NEG [facility] Comment on above: Performed By: #### U HCG, UA, UMICAO ####[place] [address] [place] [address] Nitrite,Ur Negative Normal NEG [facility] Comment on above: Performed By: #### U HCG, UA, UMICAO ####[place] [address] [id number] Turbidity CLEAR Normal CLEAR [facility] Comment on above: Performed By: #### U HCG, UA, UMICAO ####[facility] [facility] [place] [address] Urine, color YELLOW Normal YEL [facility] Comment on above: Performed By: #### U HCG, UA, UMICAO ####[facility] [facility] [place] [address] Urine, glucose presence Negative Normal NEG [facility] Comment on above: Performed By: #### U HCG, UA, UMICAO ####[place] [address] [facility] [place] [address] Urine, leukocyte esterase presence Negative Normal NEG [facility] Comment on above: Performed By: #### U HCG, UA, UMICAO ####[place] [address] [facility] [place] [address] Urine, pH 5.0 [pH] Normal 5.0-8.0 [facility] Comment on above: Performed By: #### U HCG, UA, UMICAO ####[place] [address] [facility] [place] [address] Urine, protein presence TRACE Abnormal NEG [facility] Comment on above: Performed By: #### U HCG, UA, UMICAO ####[place] [address] [facility] [place] [address] Urine, specific gravity 1.025 Normal 1.005-1.030 [facility] Comment on above: Performed By: #### U HCG, UA, UMICAO ####[place] [address] [facility] [place] [address] Urobilinogen,Ur Normal Normal NORM [facility] Comment on above: Performed By: #### U HCG, UA, UMICAO ####[place] [address] [facility] [place] [address] Urinalysis,Microon 7 ----- Normal [facility] Comment on above: Performed By: #### U HCG, UA, UMICAO ####[facility] [place] [address] Urine WBC's 0 TO 2 Normal 0 [facility] Comment on above: Performed By: #### U HCG, UA, UMICAO ####[facility] [place] [address] Urine, bacteria in sediment RARE Abnormal NONE [facility] Comment on above: Result Comment: Perf ormed at [facility] [address] [place] [address] Performed By: #### U HCG, UA, UMICAO ####[place] [address] [place] [address] Urine, epithelial cells in sediment 2 TO 5 Normal [facility] Comment on above: Performed By: #### U HCG, UA, UMICAO ####[facility] [place] [address] Urine, erythrocytes 0 TO 2 Normal 0-2 [facility] Comment on above: Performed By: #### U HCG, UA, UMICAO ####[facility] [place] [address] Epithelial, Renal NOT REPORTED Normal 0 [facility] Comment on above: Performed By: #### U HCG, UA, UMICAO ####[facility] [place] [address] Mucus Strands NOT REPORTED Normal NONE [facility] Comment on above: Performed By: #### U HCG, UA, UMICAO ####[facility] [place] [address] Other Observations NOT REPORTED Normal NREQ [facility] Comment on above: Performed By: #### U HCG, UA, UMICAO ####[facility] [facility] [place] [address] Trichomonas NOT REPORTED Normal NONE [facility] Comment on above: Performed By: #### U HCG, UA, UMICAO ####[facility] [place] [address] Urine, amorphous sediment presence in sediment NOT REPORTED Normal NONE [facility] Comment on above: Performed By: #### U HCG, UA, UMICAO ####[facility] [facility] [place] [address] Urine, casts in sediment NOT REPORTED Normal [facility] Comment on above: Performed By: #### U HCG, UA, UMICAO ####[facility] [facility] [place] [address] Urine, crystals in sediment NOT REPORTED Normal NONE [facility] Comment on above: Performed By: #### U HCG, UA, UMICAO ####[facility] [facility] [place] [address] Urine, yeast presence in sediment NOT REPORTED Normal NONE [facility] Comment on above: Performed By: #### U HCG, UA, UMICAO ####[facility] [facility] [place] [address] Vital Signs Date Time Vital Sign Value Performing Clinician Elisabeth bettencourt 02-17-2025 09:43-0400 Body height 157.5 cm Vernon Connor APRN.CNP Work Phone: [facility] 02-17-2025 09:43-0400 Body mass index (BMI) [Ratio] 33.15 kg/m2 Vernon Connor APRN.CNP Work Phone: [facility] 02-17-2025 09:43-0400 Body temperature 97.9 [degF] Vernon Connor APRN.CNP Work Phone: [facility] 02-17-2025 09:43-0400 Body weight 82.2 kg Vernon Connor APRN.BEEF SPLITTER Work Phone: [facility] 02-17-2025 09:43-0400 Diastolic blood pressure 89 mm[Hg] Vernon Connor TAXICAB STARTER.BEEF SPLITTER Work Phone: [facility] 02-17-2025 09:43-0400 Heart rate 81 /min Vernon Connor TAXICAB STARTER.BEEF SPLITTER Work Phone: [facility] 02-17-2025 09:43-0400 Systolic blood pressure 141 mm[Hg] Vernon Connor TAXICAB STARTER.BEEF SPLITTER Work Phone: [facility] Encounters Encounter Date Encounter Type Care Provider Facility Start: 02-17-2025 End: 02-17-2025 ambulatory VERNON CONNOR Facility:[facility] Start: 02-17-2025 End: 02-17-2025 Subsequent hospital visit by physician Xr Main A21 Radiology Comment on above: Elevated rheumatoid factor [R76.8] Start: 02-17-2025 End: 02-17-2025 ambulatory VERNON CONNOR Facility:[facility] Start: 02-17-2025 End: 02-17-2025 Office outpatient new 60 minutes Vernon Connor APRN.BEEF SPLITTER Work Phone: Rheumatology Comment on above: Inflammatory polyart hropathy (HCC) (Primary Dx); Elevated rheumatoid factor; Morning stiffness of joints; Pain of both shoulder joints; Pain in both hands; Foot pain, bilateral; Plantar fasciitis; Chronic midline low back pain without sciatica; Paresthesia; Chronic fatigue; Dry skin; Neck stiffness; Mckeon's palsy; Dry mouth; Dry eye syndrome of both eyes Start: 02-17-2025 End: 02-17-2025 ambulatory JELENA JOSEPH Facility:[facility] Start: 01-04-2025 End: 01-04-2025 Transcribe Orders Jelena Joseph MD Work Phone: Referring Physician Comment on above: Elevated rheumatoid factor (Primary Dx) Start: 09-16-2022 End: 09-17-[address] JELENA JOSEPH . Facility:[facility] Start: 12-26-[address] JELENA JOSEPH . Facili ty:[facility] Start: 05-17-2017 End: 05-17-2017 Emergency department patient visit JELENA JOSEPH [facility] Procedures Date Procedure Procedure Detail Performing Clinician Start: 02-17-2025 Radex spine lumbosac ral 2/3 views Vernon Connor APRN.BEEF SPLITTER Work Phone: Start: 05-17-2017 CBC WITH AUTO DIFFERENTIAL JELENA JOSEPH Start: 05-17-2017 COMPREHENSIVE METABO LIC PANEL JELENA HOY Start: 05-17-2017 Microscopic urinalysis JELENA JOSEPH Start: 05-17-2017 , URINE DEMARCO JOSEPH Start: 05-17-2017 Urinalysis JELENA Martinez Plan of Treatment Date Care Activity Detail Author Start: 03-07-2025 Influenza vaccination Influenza Vacc ine (#1) [facility] Start: 02-17-2025 End: 05-19-[address]25 [address] IFA S[address] [facility] Comment on above: Expected: 02/17/2025 , Expires: 05/19/2025 Start: 02-17-2025 End: 05-19-2025 Borrelia burgdorferi IgG and IgM panel - Serum [facility] Comment on above: Expected: 02/17/2025 , Expires: 05/19/2025 Start: 02-17-2025 End: 05-19-2025 C reactive protein [Mass/volume] in Serum or Plasma [facility] Comment on above: Expected: 02/17/2025 , Expires: 05/19/2025 Start: 02-17-2025 End: 05-19-2025 Cobalamin (Vitamin B12) [Mass/volume] in Serum or Plasma [facility] Comment on above: Expected: 02/17/2025 , Expires: 05/19/2025 Start: 02-17-2025 End: 05-19-2025 Complement C3 [Mass/volume] in Serum or Plasma [facility] Comment on above: Expected: 02/17/2025 , Expires: 05/19/2025 Start: 02-17-2025 End: 05-19-2025 Complement C4 [Mass/volume] in Serum or Plasma [facility] Comment on above: Expected: 02/17/2025 , Expires: 05/19/2025 Start: 02-17-2025 End: 05-19-2025 Cyclic citrullinated peptide IgG Ab [Units/volume] in Serum or Plasma [facility] Comment on above: Expected: 02/17/2025 , Expires: 05/19/2025 Start: 02-17-2025 End: 05-19-2025 DNA double strand Ab [Units/volume] in Serum by Immunoassay [facility] Comment on above: Expected: 02/17/2025 , Expires: 05/19/2025 Start: 02-17-2025 End: 05-19-2025 Extractable nuclear Ab panel - Serum [facility] Comment on above: Expected: 02/17/2025 , Expires: 05/19/2025 Start: 02-17-2025 End: 05-19-[address] [facility] Comment on above: Expected: 02/17/2025 , Expires: 05/19/2025 Start: 02-17-2025 End: 05-19-2025 HLA-B27 PCR [facility] Comment on above: Expected: 02/17/2025 , Expires: 05/19/2025 Start: 02-17-2025 End: 05-19-[address] [facility] Comment on above: Expected: 02/17/2025 , Expires: 05/19/2025 Start: 02-17-2025 End: 05-19-2025 PARVOVIRUS B19 IGG+M [facility] Comment on above: Expected: 02/17/2025 , Expires: 05/19/2025 Start: 02-17-2025 End: 05-19-2025 Protein/Creatinine [Mass Ratio] in Urine [facility] Comment on above: Expected: 02/17/2025 , Expires: 05/19/2025 Start: 2021 Screening for malign ant neoplasm of breast Mammogram Screening [facility] Start: 2008 HPV Vaccine (1 - 3-d ose SCDM series) HPV Vaccine (1 - 3-dose SCDM series) [facility] Start: 2002 Screening for malign ant neoplasm of cervix Cervical Cancer Screening [facility] Start: 2000 Hepatitis B Vaccine (1 of 3 - 19+ 3-dose series) Hepatitis B Vaccine (1 of 3 - 19+ 3-dose series) [facility] Start: 2000 Urine microalbumin profile DTaP,Tdap,Td Vaccine (1 - Tdap) [facility] [facility] Start: 12-08-1999 Anxiety Screening Anxiety Screening [facility] Start: 12-08-1999 Depression Screening Depression Scre ening [facility] Start: 12-08-1999 Hepatitis C screening Hepatitis C Sc reening [facility] Start: 12-08-1999 HIV screening HIV Screening [facility] End: 03-19-2026 XR Cervical spine 2 or 3 views and (Views W flexion and W extension) XR CERVICAL 2V FLEX/EXT Radiology Routine Neck stiffness 1 Occurrences starting 02/17/2025 until 03/19/2026 [facility] Comment on above: 1 Occurrences starti ng 02/17/2025 until 03/19/2026 XR Cervical spine 2 or 3 views and (Views W flexion and W extension) XR CERVICAL 2V FLEX/EXT Radiology Routine Neck stiffness 02/17/2025 2:[address] [facility] End: 03-19-2026 XR Foot - bilateral AP and Lateral and oblique XR FOOT GENERAL 3V AP/LAT/OBL BILATERAL Radiology Routine Elevated rheumatoid factor Pain of both shoulder joints Foot pain, bilateral Pain in both hands Morning stiffness of joints Inflammatory polyarthropathy (HCC) 1 Occurrences starting 02/17/2025 until 03/19/2026 [facility] Comment on above: 1 Occurrences starti ng 02/17/2025 until 03/19/2026 XR Foot - bilateral AP and Lateral and oblique XR FOOT GENERAL 3V AP/LAT/OBL BILATERAL Radiology Routine Elevated rheumatoid factor Pain of both shoulder joints Foot pain, bilateral Pain in both hands Morning stiffness of joints Inflammatory polyarthropathy (HCC) 02/17/2025 2:[address] [facility] End: 03-19-2026 XR Hand - bilateral PA and Lateral and Oblique XR HAND GENERAL 3V PA/LAT/OBL BILATERAL Radiology Routine Elevated rheumatoid factor Pain of both shoulder joints Foot pain, bilateral Pain in both hands Morning stiffness of joints Inflammatory polyarthropathy (HCC) 1 Occurrences starting 02/17/2025 until 03/19/2026 [facility] Comment on above: 1 Occurrences starti ng 02/17/2025 until 03/19/2026 XR Hand - bilateral PA and Lateral and Oblique XR HAND GENERAL 3V PA/LAT/OBL BILATERAL Radiology Routine Elevated rheumatoid factor Pain of both shoulder joints Foot pain, bilateral Pain in both hands Morning stiffness of joints Inflammatory polyarthropathy (HCC) 02/17/2025 2:[address] [facility] End: 03-19-2026 XR Lumbar spine AP and Lateral XR LUMBAR LIMITED 2V AP/LAT Radiology Routine Elevated rheumatoid factor Plantar fasciitis Chronic midline low back pain without sciatica 1 Occurrences starting 02/17/2025 until 03/19/2026 [facility] Comment on above: 1 Occurrences starti ng 02/17/2025 until 03/19/2026 XR Lumbar spine AP a nd Lateral XR LUMBAR LIMITED 2V AP/LAT Radiology Routine Elevated rheumatoid factor Plantar fasciitis Chronic midline low back pain without sciatica 02/17/2025 2:[address] [facility] End: 03-19-2026 XR Sacroiliac Joint Views XR SACROILIAC JOINTS 2V AP PELVIS/FERGUESON Radiology Routine Elevated rheumatoid factor Inflammatory polyarthropathy (HCC) Chronic midline low back pain without sciatica 1 Occurrences starting 02/17/2025 until 03/19/2026 [facility] Comment on above: 1 Occurrences starti ng 02/17/2025 until 03/19/2026 XR Sacroiliac Joint Views XR SACROILIAC JOINTS 2V AP PELVIS/FERGUESON Radiology Routine Elevated rheumatoid factor Inflammatory polyarthropathy (HCC) Chronic midline low back pain without sciatica 02/17/2025 2:[address] [facility] End: 03-19-2026 XR Shoulder - right 3 Views XR SHOULDER GENERAL 3V OR MORE AP/TRUE AP/OTHER RIGHT Radiology Routine Elevated rheumatoid factor Pain of both shoulder joints Foot pain, bilateral Pain in both hands Morning stiffness of joints Inflammatory polyarthropathy (HCC) 1 Occurrences starting 02/17/2025 until 03/19/2026 [facility] Work Phone: Comment on above: 1 Occurrences starti ng 02/17/2025 until 03/19/2026 XR Shoulder - right 3 Views XR SHOULDER GENERAL 3V OR MORE AP/TRUE AP/OTHER RIGHT Radiology Routine Elevated rheumatoid factor Pain of both shoulder joints Foot pain, bilateral Pain in both hands Morning stiffness of joints Inflammatory polyarthropathy (HCC) 02/17/2025 2:[address] [facility] Immunizations Immunization Date Immunization Notes Care Provider David mcduffie 06-08-2021 COVID-19 original vaccine, full dose, monovalent (MODERNA) Vernon Nikolas TAXICAB STARTER.BEEF SPLITTER Work Phone: [facility] 12-01-2020 COVID-19 original vaccine, full dose, monovalent (MODERNA) Vernon Nikolas TAXICAB STARTER.BEEF SPLITTER Work Phone: [facility] 11-03-2020 COVID-19 original vaccine, full dose, monovalent (MODERNA) Vernon Nikolas TAXICAB STARTER.BEEF SPLITTER Work Phone: [facility] 07-02-2018 influenza, injectabl e, quadrivalent, preservative free Vernon Nikolas TAXICAB STARTER.BEEF SPLITTER Work Phone: [facility] 07-02-2018 influenza virus vacc ine, unspecified formulation Vernon Nikolas TAXICAB STARTER.BEEF SPLITTER Work Phone: [facility] 04-30-2016 influenza, seasonal, injectable Vernon Nikolas TAXICAB STARTER.BEEF SPLITTER Work Phone: [facility] 04-25-2016 influenza, seasonal, injectable Vernon Nikolas TAXICAB STARTER.BEEF SPLITTER Work Phone: [facility] Payers Date Payer Category Payer [facility] [id number] 2014 Unknown [id number] 1981 Unknown [id number] 1981 Unknown [id number] 1959 Self-pay 1959 Unknown [id number] Social History Date Type Detail Facility [facility] consumption unknown [facility] Start: 1981 Sex assigned at Not on file [facility] Start: 02-17-2025 Gender identity Not on file [facility] Start: 02-17-2025 Tobacco smoking stat [facility] Never smoked tobacco [facility] Start: 02-17-2025 Tobacco use and exposure User of smo keless tobacco [facility] Start: 02-17-2025 History of Social function [facility] Start: 01-04-2025 National Score (1-10 0), lower number is lower risk 80 [facility] Start: 02-17-2025 Tobacco Comment Vaping [address] [facility] History of Present illness Narrative 02-17-2025 Kyrie Perez Tech - 02/17/2025 2:00 PM EDT Note Date & Type Note Facility 02-17-2025 History of Presen t illness Narrative Radiology Service Progress Note PATIENT NAME: Zulema Dotson DATE OF SERVICE: February 17, 2025 TIME: 2:38 PM PATIENT IDENTITY VERIFICATION COMPLETED USING TWO (2) IDENTIFIERS: Name and Date of confirmed by patient verbally. FALL SCREENING: Has the patient had 2 falls in the last year or 1 fall with injury or currently using an Ambulatory Assistive Device (Walker, Cane, Wheelchair, Crutches, etc.)? No PATIENT GENDER DATA: Assigned female at . status: : No status: NO. PATIENT RELEVANT IMPLANT DATA REVIEWED: Not Applicable PATIENT PRESENTS WITH AN IMPLANTABLE OR ATTACHED PERSONAL LINES ACCOUNT MANAGER: No RADIOLOGY DEPARTMENT: General X-ray: Exam(s) Completed: Spine X-Ray(s): Cervical FLEX/EXT and Lumbar AP/LAT Pelvis X-Ray: sacroiliac joints Lower Extremity X-Ray(s): Feet, Bilateral and Wt. Bearing Upper Extremity X-Ray(s): Shoulder, AP / TRUE AP right and Hand, bilateral PERIPHERAL IV DATA: Not applicable SIGNED BY: Eva Maddox February 17, 2025 2:38 PM documented in this encounter [facility] Progress note 02-17-2025 Note Date & Type Note Facility 02-17-2025 Note HNO ID: [id number] Author: KYRIE PEREZ Tech Service: ? Author Type: Orange Picking Supervisor Type: Progress Notes Filed: 02/17/2025 14:39 Note Text: Radiology Service Progress Note PATIENT NAME: Zulema Dotson DATE OF SERVICE: February 17, 2025 TIME: 2:38 PM PATIENT IDENTITY VERIFICATION COMPLETED USING TWO (2) IDENTIFIERS: Name and Date of confirmed by patient verbally. FALL SCREENING: Has the patient had 2 falls in the last year or 1 fall with injury or currently using an Ambulatory Assistive Device (Walker, Cane, Wheelchair, Crutches, etc.)? No PATIENT GENDER DATA: Assigned female at . status: : No status: NO. PATIENT RELEVANT IMPLANT DATA REVIEWED: Not Applicable PATIENT PRESENTS WITH AN IMPLANTABLE OR ATTACHED PERSONAL LINES ACCOUNT MANAGER: No RADIOLOGY DEPARTMENT: General X-ray: Exam(s) Completed: Spine X-Ray(s): Cervical FLEX/EXT and Lumbar AP/LAT Pelvis X-Ray: sacroiliac joints Lower Extremity X-Ray(s): Feet, Bilateral and Wt. Bearing Upper Extremity X-Ray(s): Shoulder, AP / TRUE AP right and Hand, bilateral PERIPHERAL IV DATA: Not applicable SIGNED BY: Eva Maddox February 17, 2025 2:38 PM [facility] 02-17-2025 Patient Instructions Note Date & Type Note Facility 02-17-2025 Instructions Vernon Connor APRN.JOSE - 02/17/2025 11:11 AM EDT 2nd floor X-rays 1st floor labs Schedule a follow-up with me in 2-3 weeks virtually. documented in this encounter [facility] History of Present illness Narrative 02-17-2025 Vernon Connor APRN.BEEF SPLITTER - 02/17/2025 10:00 AM EDT Note Date & Type Note Facility 02-17-2025 History of Presen t illness Narrative Images from the original note were not included. Rheumatology CONSULTATION Date of Service: 02/17/2025 Patient: Zulema Dotson Medical Record: [id number] Primary Care Physician: No primary care provider on file. Last Rheumatology visit: None at [facility] Referring Provider: Jelena Joseph [address] [facility] [address] Chief Complaint: No chief complaint on file. Zulema Dotson is here today at request of Dr. Joseph specifically for consultation of my opinion in regards to the chief complaint listed above. Correspondence will be shared today via the [facility] electronic health record or through regular mail, where applicable. HPI: Zulema Dotson is a 44-year-old female, with a history of HTN and anemia, presenting with joint pain and stiffness and elavted RF of 370 (normal <14). Her is with her today to provide support. PMH: HTN, plantar fasciitis, bells palsy Zulema reports onset of symptoms approximately 3-4 months ago, beginning with bilateral shoulder pain, initially thought to be tendinitis. She received corticosteroid injections and oral prednisone, which provided temporary relief. She also reports decreased range of motion in her shoulders and muscle weakness. She experiences bilateral knee pain, particularly after prolonged walking, and describes a sensation of walking on Legos in the mornings, which improves after about an hour of ambulation. She also reports bilateral hand pain, particularly in the PIP joints, and frequent charley horses in her fingers and toes, more pronounced on the right side. She notes popping in her wrists but denies significant pain. She denies elbow pain. She reports numbness and a burning sensation in her fingertips and toes, particularly in the little fingers and toes, which is a new symptom. She also experiences TMJ pain occasionally. She reports morning stiffness in her lower back and between her shoulder blades, which improves with movement. She denies hip or ankle pain but reports significant foot pain and cramping during the day. She experiences dry mouth and requires fluids to swallow food, particularly in the mornings. She also reports dry, itchy eyes and blurry vision, which varies in severity. She has not seen an eye doctor recently. She denies fevers, significant weight loss, rashes, or skin changes but reports photosensitivity, with her face becoming red and flushed after sun exposure. She denies hair loss, nail changes, oral ulcers, nosebleeds, chest pain, leg swelling, cough, or dyspnea. She reports occasional heartburn, managed with medication, and denies abdominal pain, diarrhea, or black tarry stools. She denies dysuria, hematuria, or genital ulcers. She reports fatigue, memory loss, and brain fog, which started around the same time as her other symptoms. She denies seizures or blood clots. She has a history of two first-trimester miscarriages, one of which required a D&C and resulted in hemorrhage. 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 She reports a hot work environment (up to 105 degrees), leading to concerns about dehydration. She has a family history of possible psoriasis in her father and rheumatoid arthritis in her mother, who also had multiple back surgeries. Her 17-year-old daughter had elevated rheumatoid factor levels and was evaluated for lupus at age 14-15. ROS: Review of Systems CONSTITUTION: Positive for: Fever HEENT: Positive for: Trouble swallowing and Dry mouth Negative for: Nosebleeds and Mouth sores RESPIRATORY: Negative for: Cough, Shortness of breath, Pain with breathing and Coughing up blood GASTROINTESTINAL: Positive for: Heartburn Negative for: Melena, Diarrhea and Abdominal pain MUSCULOSKELETAL: Positive for: Arthralgias, Myalgias, Muscle weakness and Morning Joint Stiffness Negative for: Joint swelling NEUROLOGICAL: Positive for: Numbness and Memory loss Negative for: Headaches SKIN: Negative for: Rash, Sun Sensitive Rash, Skin changes and Hair loss EYES: Positive for: Eye dryness and Visual disturbance Negative for: Eye pain and Eye redness CARDIOVASCULAR: Negative for: Chest pain and Leg swelling GENITOURINARY: Negative for: Dysuria, Hematuria and Ulcerations HEMATOLOGIC/LYMPHATIC: Negative for: Swollen glands PMH HTN, bells palsy, plantar fasciitis, shoulder tenonitis SHX: x 2, D&C x 2 FHX: father psoriasis, CHF. Mother: last year, dementia, severe back conditions s/p multiple surgeries. SOCIAL HISTORY[1] Medications: Current Outpatient Medications on File Prior to Visit Medication Sig Amitriptyline HCl 150 mg tablet Take 150 mg by mouth daily at bedtime. buprenorphine-naloxone (SUBOXONE) 8-2 mg film 1 film once daily. lisinopril (ZESTRIL) 10 mg tablet Take 5 mg by mouth once daily. aspirin, enteric coated (ASPIRIN, ENTERIC COATED) 81 mg EC tablet Take 81 mg by mouth once daily. predniSONE (DELTASONE) 20 mg tablet Take 20 mg by mouth once daily. No current facility-administered medications on file prior to visit. Allergies: ALLERGIES Allergen Reactions Sulfa (Sulfonamide * Other: See Comments Physical Exam VITAL SIGNS: BP 141/89 Pulse 81 Temp 36.6 C (97.9 F) (Temporal) Ht 157.5 cm (5' 2 ) Wt 82.2 kg (181 lb 3.5 oz) BMI 33.15 kg/m GENERAL: Alert and oriented, appears stated age. In no acute distress. EYES: PERRL, no conjunctival injection HENT: +dry mouth. Normal external examination of the ears and nose, lips, oropharynx and tongue. No oropharyngeal lesions or exudate. No oral or nasal sores. NECK: No mass or asymmetry. No lymphadenopathy RESPIRATORY: Normal respiratory effort. NEUROLOGIC: No gross focal neurologic deficits. SKIN: reddened cheeks, No rash, thickening, nodules, discoloration. MSK: Tenderness over second and third MCP joints of right hand; Heberden's node on middle finger DIP of right hand; cervical tenderness with palpation; lower thoracic and lumbar tenderness with palpation; positive MONISHA test on right side; decreased strength in upper extremities; pain elicited with empty can test bilaterally, pain in BL buttocks and BL greater trochanter Diagnostics: Reviewed in [facility], notable for: Labs: 02/17/25 OSH: Positive labs: RF 370 (norm <14), ESR 24 (norm <20). Negative labs: JUAN, uric acid, CBC. Assessment and Plan: # Inflammatory polyarthropathy (HCC) (M06.4) # Elevated rheumatoid factor (R76.8) # Morning stiffness of joints (M25.60) Rheumatoid factor significantly elevated at 370 IU/mL (normal <14 IU/mL) from 02/17. Patient experiences morning stiffness lasting approximately one hour, consistent with inflammatory arthritis. Symptoms include joint pain in shoulders, hands, and feet, as well as paresthesia and chronic fatigue. Differential diagnosis includes rheumatoid arthritis and spondyloarthritis. - Ordered comprehensive lab work including CCP, HLA-B27, and lupus panel. - Educated patient on autoimmune inflammatory conditions and the need for immune-lowering medication. - Provided educational materials from the [employer] on spondyloarthritis and rheumatoid arthritis. # Pain of both shoulder joints (M25.511) # Neck stiffness (M43.6) Chronic bilateral shoulder pain with decreased range of motion. Previous diagnosis of tendinitis; treated with corticosteroid injections and oral prednisone with temporary relief. Reports neck stiffness, particularly in the morning. - Ordered X-rays of cervical spine to evaluate for inflammatory changes. - Continue prednisone taper 20 mg ordered by your PCP. - Ordered X-rays of shoulders to assess for erosive changes. # Pain in both hands (M79.641) Pain localized to PIP joints bilaterally with associated paresthesia in fingers. No significant swelling observed on physical exam. - Ordered X-rays of hands to evaluate for erosive changes. # Foot pain, bilateral (M79.671) # Plantar fasciitis (M72.2) Describes foot pain as walking on Legos in the morning, with additional cramping in toes during the day. Symptoms suggestive of plantar fasciitis and inflammatory arthritis. - Ordered X-rays of feet to assess for erosive changes and plantar fasciitis. # Chronic midline low back pain without sciatica (M54.50) Chronic low back pain with stiffness in the morning and after prolonged sitting. Also recently diagnosed with BL plantar fasciitis, and father with psoriasis which can No radicular symptoms reported. - Ordered X-rays of lumbar spine to evaluate for inflammatory changes. # Paresthesia (R20.2) Experiences paresthesia and burning sensation in fingers and toes, particularly in the small fingers and toes. - Ordered X-rays of cervical spine to rule out nerve compression. - Ordered TSH and Vit B12. # Chronic fatigue (R53.82) Reports chronic fatigue and brain fog, likely related to underlying inflammatory condition. # Dry skin (L85.3) Reports chronic dry skin, fatigue, brain fog. 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 - No specific treatment required at this time. # Dry mouth (R68.2) # Dry eye syndrome of both eyes (H04.123) Reports dry mouth and intermittent dry, itchy eyes. No recent ophthalmologic evaluation. - Ordered Sjogren's panel as part of lupus workup. - Recommended she will need to follow-up with ophthalmology in the near future for comprehensive eye exam. Will update with results. I spent a total of 60 minutes on the date of the service which included preparing to see the patient, [id number] patient care, completing clinical documentation, obtaining and/or reviewing separately obtained history, performing a medically appropriate examination, counseling and educating the patient/family/caregiver, ordering medications, tests, or procedures, communicating with other HCPs (not separately reported), independently interpreting results (not separately reported), communicating results to the patient/family/caregiver, and care coordination (not separately reported). Recording using [employer] software for draft documentation of the visit was discussed with the patient/authorized utility sales representative; all questions welcomed and answered. Patient/authorized utility sales representative agreed to proceed Vernon Connor APRN.CNP Rheumatology Date: February 17, 2025 Time: 8:06 AM [1] documented in this encounter [facility] Progress note 02-17-2025 Note Date & Type Note Facility 02-17-2025 Note HNO ID: [id number] Author: VERNON CONNOR APRN.JOSE Service: ? Author Type: Nurse Practitioner Type: Progress Notes Filed: 02/17/2025 16:50 Note Text: Rheumatology CONSULTATION Date of Service: 02/17/2025 Patient: Zulema Dotson Medical Record: [id number] Primary Care Physician: No primary care provider on file. Last Rheumatology visit: None at [facility] Referring Provider: Jelena Joseph [address] [facility] [address] Chief Complaint: No chief complaint on file. Zulema Dotson is here today at request of Dr. Joseph specifically for consultation of my opinion in regards to the chief complaint listed above. Correspondence will be shared today via the [employer] electronic health record or through regular mail, where applicable. HPI: Zulema Dotson is a 44-year-old female, with a history of HTN and anemia, presenting with joint pain and stiffness and elavted RF of 370 (normal <14). Her is with her today to provide support. PMH: HTN, plantar fasciitis, bells palsy Zulema reports onset of symptoms approximately 3-4 months ago, beginning with bilateral shoulder pain, initially thought to be tendinitis. She received corticosteroid injections and oral prednisone, which provided temporary relief. She also reports decreased range of motion in her shoulders and muscle weakness. She experiences bilateral knee pain, particularly after prolonged walking, and describes a sensation of walking on Legos in the mornings, which improves after about an hour of ambulation. She also reports bilateral hand pain, particularly in the PIP joints, and frequent charley horses in her fingers and toes, more pronounced on the right side. She notes popping in her wrists but denies significant pain. She denies elbow pain. She reports numbness and a burning sensation in her fingertips and toes, particularly in the little fingers and toes, which is a new symptom. She also experiences TMJ pain occasionally. She reports morning stiffness in her lower back and between her shoulder blades, which improves with movement. She denies hip or ankle pain but reports significant foot pain and cramping during the day. She experiences dry mouth and requires fluids to swallow food, particularly in the mornings. She also reports dry, itchy eyes and blurry vision, which varies in severity. She has not seen an eye doctor recently. She denies fevers, significant weight loss, rashes, or skin changes but reports photosensitivity, with her face becoming red and flushed after sun exposure. She denies hair loss, nail changes, oral ulcers, nosebleeds, chest pain, leg swelling, cough, or dyspnea. She reports occasional heartburn, managed with medication, and denies abdominal pain, diarrhea, or black tarry stools. She denies dysuria, hematuria, or genital ulcers. She reports fatigue, memory loss, and brain fog, which started around the same time as her other symptoms. She denies seizures or blood clots. She has a history of two first-trimester miscarriages, one of which required a DANDC and resulted in hemorrhage. 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 She reports a hot work environment (up to 105 degrees), leading to concerns about dehydration. She has a family history of possible psoriasis in her father and rheumatoid arthritis in her mother, who also had multiple back surgeries. Her 17-year-old daughter had elevated rheumatoid factor levels and was evaluated for lupus at age 14-15. ROS: Review of Systems CONSTITUTION: Positive for: Fever HEENT: Positive for: Trouble swallowing and Dry mouth Negative for: Nosebleeds and Mouth sores RESPIRATORY: Negative for: Cough, Shortness of breath, Pain with breathing and Coughing up blood GASTROINTESTINAL: Positive for: Heartburn Negative for: Melena, Diarrhea and Abdominal pain MUSCULOSKELETAL: Positive for: Arthralgias, Myalgias, Muscle weakness and Morning Joint Stiffness Negative for: Joint swelling NEUROLOGICAL: Positive for: Numbness and Memory loss Negative for: Headaches SKIN: Negative for: Rash, Sun Sensitive Rash, Skin changes and Hair loss EYES: Positive for: Eye dryness and Visual disturbance Negative for: Eye pain and Eye redness CARDIOVASCULAR: Negative for: Chest pain and Leg swelling GENITOURINARY: Negative for: Dysuria, Hematuria and Ulcerations HEMATOLOGIC/LYMPHATIC: Negative for: Swollen glands PMH HTN, bells palsy, plantar fasciitis, shoulder tenonitis SHX: x 2, DANDC x 2 FHX: father psoriasis, CHF. Mother: last year, dementia, severe back conditions s/p multiple surgeries. SOCIAL HISTORY[1] Medications: Current Outpatient Medications on File Prior to Visit Medication Sig Amitriptyline HCl 150 mg tablet Take 150 mg by mouth daily at bedtime. buprenorphine-naloxone (SUBOX (more content not included)... [facility] Clinical Note 09-17-2022 Note Date & Type Note Facility 09-17-2022 Note PROCEDURE: XR HAND R T MIN 3V HISTORY: Pain in right hand , bruising COMPARISON: None. FINDINGS: BONES:No fracture, acute abnormality, or significant arthropathy. SOFT TISSUES:No visible soft tissue swelling. EFFUSION:None visible. OTHER: Negative. IMPRESSION: 1. No acute bone abnormality or suspicious findings. Electronically authenticated by: MAI BRADLEY Date: 2022-09-17 07:29 [facility] Evaluation note Note Date & Type Note Facility Evaluation note Diagnosis Elevated rheumatoid factor- Primary Other and unspecified nonspecific immunological findings documented in this encounter [facility] Evaluation note Note Date & Type Note Facility Evaluation note Diagnosis Inflammatory polyarthropathy (HCC)- Primary Unspecified inflammatory polyarthropathy Elevated rheumatoid factor Other and unspecified nonspecific immunological findings Morning stiffness of joints Stiffness of joint, not elsewhere classified, unspecified site Pain of both shoulder joints Pain in both hands Foot pain, bilateral Pain in limb Plantar fasciitis Plantar fascial fibromatosis Chronic midline low back pain without sciatica Paresthesia Disturbance of skin sensation Chronic fatigue Other malaise and fatigue Dry skin Other specified disease of sebaceous glands Neck stiffness Torticollis, unspecified Mckeon's palsy Dry mouth Disturbance of salivary secretion Dry eye syndrome of both eyes documented in this encounter [facility] Evaluation note Note Date & Type Note Facility Evaluation note Diagnosis Elevated rheumatoid factor Other and unspecified nonspecific immunological findings Pain of both shoulder joints Foot pain, bilateral Pain in limb Pain in both hands Morning stiffness of joints Stiffness of joint, not elsewhere classified, unspecified site Inflammatory polyarthropathy (HCC) Unspecified inflammatory polyarthropathy Plantar fasciitis Plantar fascial fibromatosis Chronic midline low back pain without sciatica Neck stiffness Torticollis, unspecified documented in this encounter [facility] Reason for visit Narrative Consult, Test, Treat (Routine) - Closed Note Date & Type Note Facility Reason for visit Narrative Specialty Diagnoses / Procedures Referred By Sherry tejada Referred To Contact Rheumatology Diagnoses Elevated rheumatoid factor Procedures OFFICE/OUTPATIENT [facility] 60 MINUTES Jelena Joseph MD [address] [place] [address] Phone: tel: fax: Referral ID Status Reason Start Date Expiration Date V isits Requested Visits Authorized [id number] Closed PCP Requested Referral 01/04/2025 01/04/[address] [facility] Summary Purpose Family History No Family History Records FoundNo Family History Records FoundNo Family History Records Found Advance Directives No Advanced Directives Records FoundNo Advanced Directives Records FoundNo Advanced Directives Records Found Additional Source Comments INFORMATION SOURCE (unrecogn ized section and content) DATE CREATED AUTHOR 01/02/2018 Michelle jon DATE CREATED AUTHOR AUTHOR'S ORGANIZ ATION 09/18/2022 [facility] DATE CREATED AUTHOR AUTHOR'S ORGANIZ ATION 02/22/2025 [facility] Source Comments (unrecognize d section and content) In the event this informatio n is protected by the Federal Confidentiality of Alcohol and Drug Abuse Patient Records regulations: The Federal rules restrict any use of the information to criminally investigate or prosecute any alcohol or drug abuse patient.[facility] the event this information is protected by the Federal Confidentiality of Alcohol and Drug Abuse Patient Records regulations: The Federal rules restrict any use of the information to criminally investigate or prosecute any alcohol or drug abuse patient.[facility] the event this information is protected by the Federal Confidentiality of Alcohol and Drug Abuse Patient Records regulations: The Federal rules restrict any use of the information to criminally investigate or prosecute any alcohol or drug abuse patient.[facility] Care Teams (unrecognized sec tion and content) Preventive Medicine Specialist Relationship Specialty Start Date End Date Jelena Joseph MD [address] [phone] Referring Family Medicine 01/04/25 Preventive Medicine Specialist Relationship Specialty Start Date End Date Jelena Joseph MD [address] [phone] Referring Family Medicine 01/04/25 Preventive Medicine Specialist Relationship Specialty Start Date End Date Jelena Joseph MD [address] [place] [address] Referring Family Medicine 01/04/25 Reason for Visit (unrecogniz ed section and content) Reason Comments Radio Gen A21 Specialty Diagnoses / Procedures Referred By Contac t Referred To Contact XR IMAGING Diagnoses Neck stiffness Procedures XR CERVICAL 2V FLEX/EXT RADEX SPINE CERVICAL 2 OR 3 VIEWS Vernon Connor, [employer]IC[employer] STARTER.BEEF SPLITTER [address] [place] [address] Phone: tel: fax: [place] [id number] Referral ID Status Reason Start Date Expiration Date V isits Requested Visits Authorized [id number] Closed Auto-Generate d Referral 02/17/2025 03/19/2026 1 1 FOR RECORDS PERTAINING TO PATIENTS WHO ARE [...] BE BASED ON THE PRIMARY CLINICAL RECORDS. [employer] provides no warranty or guarantee of the accuracy or completeness of information in this document.
== END 2025-02-24 15:27 | disposition home or self-care (01) ==
PROVIDERS: PCP Family Medicine; Visit Provider Family Medicine
DX: I10 Essential (primary) hypertension (principal)
CPT/HCPCS: 36415; 80053; 84436; 84443; 84481